=== PATIENT | male | born 1985 | race Caucasian/White ===

== ENCOUNTER 2022-02-27 17:00 | Inpatient (IN) | payer OTHER ==
[2022-02-27 18:50] VITALS: BMI 23.8
[2022-02-27] MEDS ORDERED: BISMUTH SUBSALICYLATE 524 MG/30 ML PO PRN (22:09)
[2022-02-27] MEDS ORDERED: MAGNESIUM CITRATE 300 ML BOTTLE PO PRN (22:09)
[2022-02-27] MEDS ORDERED: IBUPROFEN 400 MG TABLET (FP) PO PRN (22:09)
[2022-02-27] MEDS ORDERED: BENZOCAINE/MENTHOL (CHLORASEPTIC ) LOZENGE MM PRN (22:09)
[2022-02-27] MEDS ORDERED: DICYCLOMINE HCL 10 MG CAPSULE PO PRN (22:09)
[2022-02-27] MEDS ORDERED: ACETAMINOPHEN 325 MG TABLET (FP) PO PRN ×2 (22:09)
[2022-02-27] MEDS ORDERED: MAGNESIUM HYDROX 2400MG/30ML ORAL SUSPENSION 30 ML CUP PO PRN (22:09)
[2022-02-27] MEDS ORDERED: ONDANSETRON *ODT* 4 MG TABLET SL PRN (22:09)
[2022-02-27] MEDS ORDERED: NICOTINE POLACRILEX 2 MG GUM BUC PRN (22:09)
[2022-02-27] MEDS ORDERED: MAG HYDROX/AL HYDROX/SIMETH 30 ML UNIT-DOSE CUP PO PRN (22:09)
[2022-02-27] MEDS ORDERED: LOPERAMIDE HCL 2 MG CAPSULE PO PRN (22:09)
[2022-02-27] MEDS ORDERED: METHOCARBAMOL 500 MG TABLET PO PRN (22:09)
[2022-02-28] MEDS ORDERED: methaDONE HCL 10 MG TABLET PO ONE (09:16)
[2022-02-28] MEDS ORDERED: diazePAM 5 MG TABLET PO PRN (09:17)
[2022-02-28] MEDS: PRENATAL VITAMINS W/ FOLIC ACID TABLET (FP) PO SCH (10:32)
[2022-02-28] MEDS ORDERED: methaDONE HCL 10 MG TABLET ONE (10:32)
[2022-02-28] MEDS: diazePAM 5 MG TABLET PO SCH ×4 (10:33→22:02)
[2022-02-28] MEDS ORDERED: methaDONE HCL 40 MG DISPERSABLE TABLET ONE (10:33)
[2022-02-28] MEDS: NICOTINE 21 MG/24 HOURS TOPICAL PATCH TD SCH ×2 (10:34→12:28)
[2022-02-28 11:53] LABS: HEMATOCRIT 36.9 % (35.4-49); HEMOGLOBIN 12.6 GM/dL (11.7-16.9); MCH 28.7 pg (25.7-33.7); MCHC 34.1 g/dl (32.0-35.9); MEAN CELL VOLUME 84.1 fl (80-96); MEAN PLT VOLUME 8.4 fl (7.5-11.1); PLATELET COUNT 200 10^3/uL (134-434); RBC 4.39 M/mm3 (4.00-5.60); RDW 14.3 % (11.9-15.9); WHITE BLOOD COUNT 4.1 K/mm3 (4.0-10.0)
[2022-02-28 11:55] LABS: ALBUMIN 3.5 g/dl (3.4-5.0)
[2022-02-28 11:56] LABS: CALCIUM 8.8 mg/dL (8.5-10.1)
[2022-02-28 11:57] LABS: BLOOD UREA NITROGEN 12.3 mg/dL (7-18)
[2022-02-28 11:59] LABS: CREATININE 0.9 mg/dL (0.55-1.3)
[2022-02-28 12:00] LABS: BILIRUBIN,TOTAL 0.2 mg/dL (0.2-1); TOT PROT 6.1 g/dl (6.4-8.2)
[2022-02-28] MEDS: hydrOXYzine PAMOATE 25 MG CAPSULE (FP) PO PRN ×2 (12:30→20:41)
[2022-02-28] MEDS: NICOTINE POLACRILEX 4 MG GUM BUC PRN ×2 (18:02→20:41)
[2022-02-28] MEDS ORDERED: SUVOREXANT 10 MG TABLET PO PRN (22:00)
[2022-02-28] MEDS ORDERED: MELATONIN 5 MG TABLETS PO SCH (22:00)
[2022-02-28] MEDS: THIAMINE HCL 100 MG TABLET (FP) PO SCH (22:02)
[2022-03-01] MEDS: hydrOXYzine PAMOATE 25 MG CAPSULE (FP) PO PRN ×3 (05:59→22:31)
[2022-03-01] MEDS: NICOTINE POLACRILEX 4 MG GUM BUC PRN ×4 (05:59→22:32)
[2022-03-01] MEDS: diazePAM 5 MG TABLET PO SCH ×3 (05:59→22:30)
[2022-03-01] MEDS ORDERED: methaDONE HCL 10 MG TABLET PO ONE (08:52)
[2022-03-01] MEDS ORDERED: methaDONE HCL 10 MG TABLET PO SCH (09:30)
[2022-03-01] MEDS ORDERED: methaDONE HCL 40 MG DISPERSABLE TABLET ONE (10:04)
[2022-03-01] MEDS ORDERED: methaDONE HCL 10 MG TABLET ONE (10:04)
[2022-03-01] MEDS: PRENATAL VITAMINS W/ FOLIC ACID TABLET (FP) PO SCH (10:40)
[2022-03-01] MEDS: NICOTINE 21 MG/24 HOURS TOPICAL PATCH TD SCH (10:40)
[2022-03-01 14:08] LABS: SARS-CoV-2 NAA Not Detected (Not Detected)
[2022-03-01 14:08] LABS: SARS-CoV-2 NAA Not Detected (Not Detected)
[2022-03-01] MEDS: THIAMINE HCL 100 MG TABLET (FP) PO SCH (22:30)
[2022-03-01] MEDS: SUVOREXANT 15 MG TABLET PO PRN (22:31)
[2022-03-02] MEDS ORDERED: methaDONE HCL 10 MG TABLET ONE (04:11)
[2022-03-02] MEDS ORDERED: methaDONE HCL 40 MG DISPERSABLE TABLET ONE (04:12)
[2022-03-02] MEDS: hydrOXYzine PAMOATE 25 MG CAPSULE (FP) PO PRN ×4 (06:03→23:03)
[2022-03-02] MEDS: diazePAM 5 MG TABLET PO SCH ×2 (06:03→17:52)
[2022-03-02] MEDS: NICOTINE POLACRILEX 4 MG GUM BUC PRN ×6 (06:06→23:04)
[2022-03-02] MEDS: NICOTINE 21 MG/24 HOURS TOPICAL PATCH TD SCH (10:36)
[2022-03-02] MEDS: PRENATAL VITAMINS W/ FOLIC ACID TABLET (FP) PO SCH (10:36)
[2022-03-02] MEDS: THIAMINE HCL 100 MG TABLET (FP) PO SCH (23:03)
[2022-03-02] MEDS: SUVOREXANT 15 MG TABLET PO PRN (23:03)
[2022-03-03] MEDS ORDERED: methaDONE HCL 10 MG TABLET ONE (04:23)
[2022-03-03] MEDS ORDERED: methaDONE HCL 40 MG DISPERSABLE TABLET ONE (04:23)
[2022-03-03] MEDS ORDERED: diazePAM 5 MG TABLET PO ONE (06:00)
[2022-03-03] MEDS: hydrOXYzine PAMOATE 25 MG CAPSULE (FP) PO PRN (07:02)
[2022-03-03] MEDS: NICOTINE POLACRILEX 4 MG GUM BUC PRN ×2 (07:03→12:01)
[2022-03-03] MEDS: NICOTINE 21 MG/24 HOURS TOPICAL PATCH TD SCH (11:18)
[2022-03-03] MEDS: PRENATAL VITAMINS W/ FOLIC ACID TABLET (FP) PO SCH (11:18)
[2022-03-03 12:57] VITALS: BP 109/72; PULSE 78; TEMP 96.8
== END 2022-03-03 15:00 | disposition other institution (70) | DRG 773 ==
LOC: YASAS 17:00 → Y6N 23:36
PROVIDERS: ADMIT Allergy & Immunology; ATTEND Allergy & Immunology
PROC: HZ2ZZZZ Detoxification Services for Substance Abuse Treatment (ICD-10-PCS; principal; 2022-02-27)
DX: F10.230 Alcohol dependence with withdrawal, uncomplicated (principal); F13.230 Sedative, hypnotic or anxiolytic dependence with withdrawal, uncomplicated; F11.20 Opioid dependence, uncomplicated; F14.20 Cocaine dependence, uncomplicated; F17.210 Nicotine dependence, cigarettes, uncomplicated; F19.280 Other psychoactive substance dependence with psychoactive substance-induced anxiety disorder; F19.282 Other psychoactive substance dependence with psychoactive substance-induced sleep disorder; F19.24 Other psychoactive substance dependence with psychoactive substance-induced mood disorder; M51.16 Intervertebral disc disorders with radiculopathy, lumbar region; R56.9 Unspecified convulsions; Z56.0 Unemployment, unspecified; Z59.00 Homelessness unspecified
CPT/HCPCS: 36415; 71046-TC-FY; 80053; 85027; 86780; C9803-CS; U0003; U0005

== ENCOUNTER 2022-03-03 15:16 | Inpatient (IN) | payer OTHER ==
[2022-03-03] MEDS ORDERED: ACETAMINOPHEN 325 MG TABLET (FP) PO PRN (15:52)
[2022-03-03] MEDS ORDERED: MAGNESIUM HYDROX 2400MG/30ML ORAL SUSPENSION 30 ML CUP PO PRN (15:52)
[2022-03-03] MEDS ORDERED: P-EPHED 60MG/TRIPROLIDI 2.5MG TABLET PO PRN (15:52)
[2022-03-03] MEDS ORDERED: BENZOCAINE/MENTHOL (CHLORASEPTIC ) LOZENGE MM PRN (15:52)
[2022-03-03] MEDS ORDERED: LOPERAMIDE HCL 2 MG CAPSULE PO PRN (15:52)
[2022-03-03] MEDS ORDERED: guaiFENesin 200 MG/10 ML 10 ML UNIT-DOSE CUPS PO PRN (15:52)
[2022-03-03] MEDS ORDERED: MAGNESIUM CITRATE 300 ML BOTTLE PO PRN (15:52)
[2022-03-03] MEDS: NICOTINE POLACRILEX 4 MG GUM BUC PRN (17:40)
[2022-03-03] MEDS: THIAMINE HCL 100 MG TABLET (FP) PO SCH (21:24)
[2022-03-03] MEDS: hydrOXYzine PAMOATE 25 MG CAPSULE (FP) PO PRN (21:25)
[2022-03-03] MEDS: MELATONIN 5 MG TABLETS PO SCH (21:26)
[2022-03-04] MEDS: hydrOXYzine PAMOATE 25 MG CAPSULE (FP) PO PRN ×4 (01:03→21:35)
[2022-03-04] MEDS: MAG HYDROX/AL HYDROX/SIMETH 30 ML UNIT-DOSE CUP PO PRN (01:03)
[2022-03-04] MEDS ORDERED: methaDONE HCL 40 MG DISPERSABLE TABLET ONE (05:47)
[2022-03-04] MEDS ORDERED: methaDONE HCL 10 MG TABLET ONE (05:47)
[2022-03-04] MEDS ORDERED: methaDONE HCL 10 MG TABLET PO SCH (06:00)
[2022-03-04] MEDS: NICOTINE POLACRILEX 4 MG GUM BUC PRN ×4 (06:23→21:36)
[2022-03-04] MEDS: PRENATAL VITAMINS W/ FOLIC ACID TABLET (FP) PO SCH (09:56)
[2022-03-04] MEDS: NICOTINE 21 MG/24 HOURS TOPICAL PATCH TD SCH (09:56)
[2022-03-04] MEDS: METHOCARBAMOL 500 MG TABLET PO PRN ×2 (13:22→21:34)
[2022-03-04] MEDS: MIRTAZAPINE 15 MG TABLET (FP) PO SCH (21:34)
[2022-03-04] MEDS: MELATONIN 5 MG TABLETS PO SCH (21:34)
[2022-03-04] MEDS: THIAMINE HCL 100 MG TABLET (FP) PO SCH (21:34)
[2022-03-04] MEDS ORDERED: SUVOREXANT 10 MG TABLET PO PRN (22:00)
[2022-03-05] MEDS ORDERED: methaDONE HCL 10 MG TABLET ONE (03:28)
[2022-03-05] MEDS ORDERED: methaDONE HCL 40 MG DISPERSABLE TABLET ONE (03:28)
[2022-03-05] MEDS: NICOTINE POLACRILEX 4 MG GUM BUC PRN ×5 (06:24→21:52)
[2022-03-05] MEDS: METHOCARBAMOL 500 MG TABLET PO PRN ×3 (06:27→21:50)
[2022-03-05] MEDS: hydrOXYzine PAMOATE 25 MG CAPSULE (FP) PO PRN ×3 (06:27→21:51)
[2022-03-05] MEDS: PRENATAL VITAMINS W/ FOLIC ACID TABLET (FP) PO SCH (09:40)
[2022-03-05] MEDS: NICOTINE 21 MG/24 HOURS TOPICAL PATCH TD SCH (09:40)
[2022-03-05] MEDS: MELATONIN 5 MG TABLETS PO SCH (21:51)
[2022-03-05] MEDS: THIAMINE HCL 100 MG TABLET (FP) PO SCH (21:51)
[2022-03-05] MEDS: MIRTAZAPINE 15 MG TABLET (FP) PO SCH (21:51)
[2022-03-06] MEDS ORDERED: methaDONE HCL 40 MG DISPERSABLE TABLET ONE (03:26)
[2022-03-06] MEDS ORDERED: methaDONE HCL 10 MG TABLET ONE (03:26)
[2022-03-06] MEDS: NICOTINE POLACRILEX 4 MG GUM BUC PRN ×3 (06:24→11:55)
[2022-03-06] MEDS: hydrOXYzine PAMOATE 25 MG CAPSULE (FP) PO PRN ×2 (06:26→21:21)
[2022-03-06] MEDS: METHOCARBAMOL 500 MG TABLET PO PRN ×3 (06:26→21:21)
[2022-03-06] MEDS: NICOTINE 21 MG/24 HOURS TOPICAL PATCH TD SCH (09:40)
[2022-03-06] MEDS: PRENATAL VITAMINS W/ FOLIC ACID TABLET (FP) PO SCH (09:40)
[2022-03-06] MEDS: IBUPROFEN 400 MG TABLET (FP) PO PRN (12:47)
[2022-03-06] MEDS: MELATONIN 5 MG TABLETS PO SCH (21:21)
[2022-03-06] MEDS: THIAMINE HCL 100 MG TABLET (FP) PO SCH (21:21)
[2022-03-06] MEDS: MIRTAZAPINE 15 MG TABLET (FP) PO SCH (21:22)
[2022-03-07] MEDS ORDERED: methaDONE HCL 10 MG TABLET ONE (02:48)
[2022-03-07] MEDS ORDERED: methaDONE HCL 40 MG DISPERSABLE TABLET ONE (02:48)
[2022-03-07] MEDS: hydrOXYzine PAMOATE 25 MG CAPSULE (FP) PO PRN ×2 (02:55→21:27)
[2022-03-07] MEDS: METHOCARBAMOL 500 MG TABLET PO PRN ×2 (02:56→21:28)
[2022-03-07] MEDS: MAG HYDROX/AL HYDROX/SIMETH 30 ML UNIT-DOSE CUP PO PRN (04:28)
[2022-03-07] MEDS: NICOTINE POLACRILEX 4 MG GUM BUC PRN ×2 (06:31→09:52)
[2022-03-07] MEDS: PRENATAL VITAMINS W/ FOLIC ACID TABLET (FP) PO SCH (09:51)
[2022-03-07] MEDS: NICOTINE 14 MG/24 HOURS TOPICAL PATCH TD SCH (09:51)
[2022-03-07 14:08] LABS: SARS-CoV-2 NAA Not Detected (Not Detected)
[2022-03-07] MEDS: THIAMINE HCL 100 MG TABLET (FP) PO SCH (21:27)
[2022-03-07] MEDS: MELATONIN 5 MG TABLETS PO SCH (21:28)
[2022-03-07] MEDS: MIRTAZAPINE 15 MG TABLET (FP) PO SCH (21:28)
[2022-03-08] MEDS ORDERED: methaDONE HCL 10 MG TABLET ONE (02:06)
[2022-03-08] MEDS ORDERED: methaDONE HCL 40 MG DISPERSABLE TABLET ONE (02:06)
[2022-03-08] MEDS: PRENATAL VITAMINS W/ FOLIC ACID TABLET (FP) PO SCH (09:58)
[2022-03-08] MEDS: NICOTINE 14 MG/24 HOURS TOPICAL PATCH TD SCH (09:59)
[2022-03-08] MEDS: MELATONIN 5 MG TABLETS PO SCH (21:25)
[2022-03-08] MEDS: MIRTAZAPINE 15 MG TABLET (FP) PO SCH (21:25)
[2022-03-08] MEDS: THIAMINE HCL 100 MG TABLET (FP) PO SCH (21:25)
[2022-03-09] MEDS ORDERED: methaDONE HCL 10 MG TABLET ONE (02:20)
[2022-03-09] MEDS ORDERED: methaDONE HCL 40 MG DISPERSABLE TABLET ONE (02:20)
[2022-03-09] MEDS: NICOTINE 14 MG/24 HOURS TOPICAL PATCH TD SCH (10:05)
[2022-03-09] MEDS: PRENATAL VITAMINS W/ FOLIC ACID TABLET (FP) PO SCH (10:06)
[2022-03-09] MEDS: MIRTAZAPINE 15 MG TABLET (FP) PO SCH (21:19)
[2022-03-09] MEDS: MELATONIN 5 MG TABLETS PO SCH (21:19)
[2022-03-09] MEDS: THIAMINE HCL 100 MG TABLET (FP) PO SCH (21:19)
[2022-03-10] MEDS ORDERED: methaDONE HCL 40 MG DISPERSABLE TABLET ONE (03:22)
[2022-03-10] MEDS ORDERED: methaDONE HCL 10 MG TABLET ONE (03:22)
[2022-03-10] MEDS: NICOTINE 14 MG/24 HOURS TOPICAL PATCH TD SCH (10:05)
[2022-03-10] MEDS: METHOCARBAMOL 500 MG TABLET PO PRN (10:05)
[2022-03-10] MEDS: PRENATAL VITAMINS W/ FOLIC ACID TABLET (FP) PO SCH (10:05)
[2022-03-10] MEDS: THIAMINE HCL 100 MG TABLET (FP) PO SCH (21:47)
[2022-03-10] MEDS: MELATONIN 5 MG TABLETS PO SCH (21:47)
[2022-03-10] MEDS: MIRTAZAPINE 15 MG TABLET (FP) PO SCH (21:47)
[2022-03-10] MEDS: hydrOXYzine PAMOATE 25 MG CAPSULE (FP) PO PRN (23:46)
[2022-03-11] MEDS ORDERED: methaDONE HCL 10 MG TABLET ONE (06:13)
[2022-03-11] MEDS ORDERED: methaDONE HCL 40 MG DISPERSABLE TABLET ONE (06:13)
[2022-03-11] MEDS: PRENATAL VITAMINS W/ FOLIC ACID TABLET (FP) PO SCH (11:13)
[2022-03-11] MEDS: NICOTINE 14 MG/24 HOURS TOPICAL PATCH TD SCH (11:13)
[2022-03-11] MEDS: MIRTAZAPINE 15 MG TABLET (FP) PO SCH (21:33)
[2022-03-11] MEDS: MELATONIN 5 MG TABLETS PO SCH (21:33)
[2022-03-11] MEDS: THIAMINE HCL 100 MG TABLET (FP) PO SCH (21:34)
[2022-03-12] MEDS ORDERED: methaDONE HCL 10 MG TABLET ONE (03:09)
[2022-03-12] MEDS ORDERED: methaDONE HCL 40 MG DISPERSABLE TABLET ONE (03:09)
[2022-03-12] MEDS: IBUPROFEN 400 MG TABLET (FP) PO PRN (08:26)
[2022-03-12] MEDS: PRENATAL VITAMINS W/ FOLIC ACID TABLET (FP) PO SCH (09:20)
[2022-03-12] MEDS: METHOCARBAMOL 500 MG TABLET PO PRN ×2 (09:20→22:47)
[2022-03-12] MEDS: NICOTINE 14 MG/24 HOURS TOPICAL PATCH TD SCH (09:21)
[2022-03-12] MEDS: MELATONIN 5 MG TABLETS PO SCH (21:27)
[2022-03-12] MEDS: MIRTAZAPINE 15 MG TABLET (FP) PO SCH (21:27)
[2022-03-12] MEDS: THIAMINE HCL 100 MG TABLET (FP) PO SCH (21:27)
[2022-03-12] MEDS: hydrOXYzine PAMOATE 25 MG CAPSULE (FP) PO PRN (22:47)
[2022-03-13] MEDS ORDERED: methaDONE HCL 10 MG TABLET ONE (03:21)
[2022-03-13] MEDS ORDERED: methaDONE HCL 40 MG DISPERSABLE TABLET ONE (03:21)
[2022-03-13] MEDS: PRENATAL VITAMINS W/ FOLIC ACID TABLET (FP) PO SCH (09:30)
[2022-03-13] MEDS: NICOTINE 14 MG/24 HOURS TOPICAL PATCH TD SCH (09:30)
[2022-03-13] MEDS: METHOCARBAMOL 500 MG TABLET PO PRN ×2 (09:31→21:32)
[2022-03-13] MEDS: NICOTINE POLACRILEX 4 MG GUM BUC PRN (09:31)
[2022-03-13] MEDS: MELATONIN 5 MG TABLETS PO SCH (21:33)
[2022-03-13] MEDS: MIRTAZAPINE 15 MG TABLET (FP) PO SCH (21:33)
[2022-03-13] MEDS: THIAMINE HCL 100 MG TABLET (FP) PO SCH (21:33)
[2022-03-14] MEDS: hydrOXYzine PAMOATE 25 MG CAPSULE (FP) PO PRN ×2 (00:01→21:32)
[2022-03-14] MEDS ORDERED: methaDONE HCL 40 MG DISPERSABLE TABLET ONE (09:14)
[2022-03-14] MEDS ORDERED: methaDONE HCL 10 MG TABLET ONE (09:14)
[2022-03-14] MEDS: NICOTINE 7 MG/24 HOURS TOPICAL PATCH TD SCH (09:55)
[2022-03-14] MEDS: PRENATAL VITAMINS W/ FOLIC ACID TABLET (FP) PO SCH (09:55)
[2022-03-14] MEDS: NICOTINE POLACRILEX 4 MG GUM BUC PRN (09:56)
[2022-03-14] MEDS: IBUPROFEN 400 MG TABLET (FP) PO PRN ×2 (12:39→20:02)
[2022-03-14] MEDS: METHOCARBAMOL 500 MG TABLET PO PRN ×2 (12:39→20:02)
[2022-03-14] MEDS: SUVOREXANT 10 MG TABLET PO PRN (21:31)
[2022-03-14] MEDS: THIAMINE HCL 100 MG TABLET (FP) PO SCH (21:32)
[2022-03-14] MEDS: MELATONIN 5 MG TABLETS PO SCH (21:32)
[2022-03-15] MEDS ORDERED: methaDONE HCL 40 MG DISPERSABLE TABLET ONE (07:17)
[2022-03-15] MEDS ORDERED: methaDONE HCL 10 MG TABLET ONE (07:17)
[2022-03-15] MEDS: PRENATAL VITAMINS W/ FOLIC ACID TABLET (FP) PO SCH (09:48)
[2022-03-15] MEDS: NICOTINE 7 MG/24 HOURS TOPICAL PATCH TD SCH (09:50)
[2022-03-15] MEDS: METHOCARBAMOL 500 MG TABLET PO PRN ×2 (09:51→22:48)
[2022-03-15] MEDS: NICOTINE POLACRILEX 2 MG GUM BUC PRN ×2 (09:52→12:24)
[2022-03-15] MEDS: IBUPROFEN 400 MG TABLET (FP) PO PRN ×2 (12:21→22:48)
[2022-03-15] MEDS: MELATONIN 5 MG TABLETS PO SCH (21:40)
[2022-03-15] MEDS: THIAMINE HCL 100 MG TABLET (FP) PO SCH (21:40)
[2022-03-15] MEDS: hydrOXYzine PAMOATE 25 MG CAPSULE (FP) PO PRN (21:41)
[2022-03-15] MEDS: SUVOREXANT 10 MG TABLET PO PRN (21:41)
[2022-03-16] MEDS ORDERED: methaDONE HCL 40 MG DISPERSABLE TABLET ONE (08:34)
[2022-03-16] MEDS ORDERED: methaDONE HCL 10 MG TABLET ONE (08:34)
[2022-03-16] MEDS: PRENATAL VITAMINS W/ FOLIC ACID TABLET (FP) PO SCH (09:44)
[2022-03-16] MEDS: ASPIRIN 81 MG CHEWABLE TABLETS PO SCH (09:44)
[2022-03-16] MEDS: NICOTINE 7 MG/24 HOURS TOPICAL PATCH TD SCH (09:46)
[2022-03-16] MEDS: NICOTINE POLACRILEX 2 MG GUM BUC PRN ×2 (09:47→12:34)
[2022-03-16] MEDS: THIAMINE HCL 100 MG TABLET (FP) PO SCH (21:26)
[2022-03-16] MEDS: hydrOXYzine PAMOATE 25 MG CAPSULE (FP) PO PRN (21:26)
[2022-03-16] MEDS: METHOCARBAMOL 500 MG TABLET PO PRN (21:26)
[2022-03-16] MEDS: SUVOREXANT 10 MG TABLET PO PRN (21:27)
[2022-03-16] MEDS: MELATONIN 5 MG TABLETS PO SCH (21:28)
[2022-03-17] MEDS ORDERED: methaDONE HCL 40 MG DISPERSABLE TABLET ONE (08:33)
[2022-03-17] MEDS ORDERED: methaDONE HCL 10 MG TABLET ONE (08:33)
[2022-03-17] MEDS: PRENATAL VITAMINS W/ FOLIC ACID TABLET (FP) PO SCH (09:46)
[2022-03-17] MEDS: ASPIRIN 81 MG CHEWABLE TABLETS PO SCH (09:46)
[2022-03-17] MEDS: NICOTINE 7 MG/24 HOURS TOPICAL PATCH TD SCH (09:47)
[2022-03-17] MEDS: SUVOREXANT 10 MG TABLET PO PRN (21:16)
[2022-03-17] MEDS: METHOCARBAMOL 500 MG TABLET PO PRN (21:16)
[2022-03-17] MEDS: THIAMINE HCL 100 MG TABLET (FP) PO SCH (21:16)
[2022-03-17] MEDS: hydrOXYzine PAMOATE 25 MG CAPSULE (FP) PO PRN (21:16)
[2022-03-17] MEDS: MELATONIN 5 MG TABLETS PO SCH (21:26)
[2022-03-18] MEDS ORDERED: methaDONE HCL 40 MG DISPERSABLE TABLET ONE (09:09)
[2022-03-18] MEDS ORDERED: methaDONE HCL 10 MG TABLET ONE (09:09)
[2022-03-18] MEDS: PRENATAL VITAMINS W/ FOLIC ACID TABLET (FP) PO SCH (09:54)
[2022-03-18] MEDS: METHOCARBAMOL 500 MG TABLET PO PRN (09:54)
[2022-03-18] MEDS: ASPIRIN 81 MG CHEWABLE TABLETS PO SCH (09:54)
[2022-03-18] MEDS: NICOTINE POLACRILEX 2 MG GUM BUC PRN (09:55)
[2022-03-18] MEDS: NICOTINE 7 MG/24 HOURS TOPICAL PATCH TD SCH (10:08)
[2022-03-18] MEDS: THIAMINE HCL 100 MG TABLET (FP) PO SCH (21:51)
[2022-03-18] MEDS: SUVOREXANT 10 MG TABLET PO PRN (21:53)
[2022-03-18] MEDS: hydrOXYzine PAMOATE 25 MG CAPSULE (FP) PO PRN (21:54)
[2022-03-18] MEDS: MELATONIN 5 MG TABLETS PO SCH (21:56)
[2022-03-19] MEDS ORDERED: methaDONE HCL 40 MG DISPERSABLE TABLET ONE (09:20)
[2022-03-19] MEDS ORDERED: methaDONE HCL 10 MG TABLET ONE (09:20)
[2022-03-19] MEDS: PRENATAL VITAMINS W/ FOLIC ACID TABLET (FP) PO SCH (09:47)
[2022-03-19] MEDS: METHOCARBAMOL 500 MG TABLET PO PRN ×2 (09:48→21:31)
[2022-03-19] MEDS: ASPIRIN 81 MG CHEWABLE TABLETS PO SCH (09:48)
[2022-03-19] MEDS: NICOTINE 7 MG/24 HOURS TOPICAL PATCH TD SCH (09:49)
[2022-03-19] MEDS: NICOTINE POLACRILEX 2 MG GUM BUC PRN (09:51)
[2022-03-19] MEDS: MELATONIN 5 MG TABLETS PO SCH (21:30)
[2022-03-19] MEDS: THIAMINE HCL 100 MG TABLET (FP) PO SCH (21:30)
[2022-03-19] MEDS: hydrOXYzine PAMOATE 25 MG CAPSULE (FP) PO PRN (21:31)
[2022-03-19] MEDS: SUVOREXANT 10 MG TABLET PO PRN (21:32)
[2022-03-20] MEDS ORDERED: methaDONE HCL 10 MG TABLET ONE (08:23)
[2022-03-20] MEDS ORDERED: methaDONE HCL 40 MG DISPERSABLE TABLET ONE (08:23)
[2022-03-20] MEDS: NICOTINE 7 MG/24 HOURS TOPICAL PATCH TD SCH (09:53)
[2022-03-20] MEDS: ASPIRIN 81 MG CHEWABLE TABLETS PO SCH (09:53)
[2022-03-20] MEDS: PRENATAL VITAMINS W/ FOLIC ACID TABLET (FP) PO SCH (09:53)
[2022-03-20] MEDS: NICOTINE POLACRILEX 2 MG GUM BUC PRN (09:54)
[2022-03-20] MEDS: METHOCARBAMOL 500 MG TABLET PO PRN ×2 (09:55→21:34)
[2022-03-20] MEDS: MELATONIN 5 MG TABLETS PO SCH (21:34)
[2022-03-20] MEDS: THIAMINE HCL 100 MG TABLET (FP) PO SCH (21:34)
[2022-03-20] MEDS: hydrOXYzine PAMOATE 25 MG CAPSULE (FP) PO PRN (21:34)
[2022-03-21] MEDS ORDERED: methaDONE HCL 10 MG TABLET ONE (08:43)
[2022-03-21] MEDS ORDERED: methaDONE HCL 40 MG DISPERSABLE TABLET ONE (08:44)
[2022-03-21] MEDS: ASPIRIN 81 MG CHEWABLE TABLETS PO SCH (09:57)
[2022-03-21] MEDS: PRENATAL VITAMINS W/ FOLIC ACID TABLET (FP) PO SCH (09:57)
[2022-03-21] MEDS: NICOTINE 7 MG/24 HOURS TOPICAL PATCH TD SCH (09:59)
[2022-03-21] MEDS: METHOCARBAMOL 500 MG TABLET PO PRN ×2 (12:07→21:27)
[2022-03-21] MEDS: NICOTINE POLACRILEX 2 MG GUM BUC PRN (12:08)
[2022-03-21] MEDS: hydrOXYzine PAMOATE 25 MG CAPSULE (FP) PO PRN (21:27)
[2022-03-21] MEDS: MELATONIN 5 MG TABLETS PO SCH (21:27)
[2022-03-21] MEDS: THIAMINE HCL 100 MG TABLET (FP) PO SCH (21:27)
[2022-03-22] MEDS ORDERED: methaDONE HCL 10 MG TABLET ONE (08:29)
[2022-03-22] MEDS ORDERED: methaDONE HCL 40 MG DISPERSABLE TABLET ONE (08:30)
[2022-03-22] MEDS: PRENATAL VITAMINS W/ FOLIC ACID TABLET (FP) PO SCH (09:51)
[2022-03-22] MEDS: NICOTINE 7 MG/24 HOURS TOPICAL PATCH TD SCH (09:51)
[2022-03-22] MEDS: METHOCARBAMOL 500 MG TABLET PO PRN ×2 (09:52→21:15)
[2022-03-22] MEDS: ASPIRIN 81 MG CHEWABLE TABLETS PO SCH (09:52)
[2022-03-22] MEDS: hydrOXYzine PAMOATE 25 MG CAPSULE (FP) PO PRN ×2 (09:52→21:15)
[2022-03-22] MEDS: NICOTINE POLACRILEX 2 MG GUM BUC PRN (11:42)
[2022-03-22] MEDS: MELATONIN 5 MG TABLETS PO SCH (21:14)
[2022-03-22] MEDS: THIAMINE HCL 100 MG TABLET (FP) PO SCH (21:15)
[2022-03-23] MEDS ORDERED: methaDONE HCL 10 MG TABLET ONE (08:43)
[2022-03-23] MEDS ORDERED: methaDONE HCL 40 MG DISPERSABLE TABLET ONE (08:43)
[2022-03-23] MEDS: NICOTINE POLACRILEX 2 MG GUM BUC PRN (09:34)
[2022-03-23] MEDS: NICOTINE 7 MG/24 HOURS TOPICAL PATCH TD SCH (09:34)
[2022-03-23] MEDS: hydrOXYzine PAMOATE 25 MG CAPSULE (FP) PO PRN ×2 (09:34→21:22)
[2022-03-23] MEDS: PRENATAL VITAMINS W/ FOLIC ACID TABLET (FP) PO SCH (09:34)
[2022-03-23] MEDS: ASPIRIN 81 MG CHEWABLE TABLETS PO SCH (09:34)
[2022-03-23] MEDS: METHOCARBAMOL 500 MG TABLET PO PRN ×2 (09:34→21:22)
[2022-03-23] MEDS: THIAMINE HCL 100 MG TABLET (FP) PO SCH (21:21)
[2022-03-23] MEDS: MELATONIN 5 MG TABLETS PO SCH (21:21)
[2022-03-23] MEDS: SUVOREXANT 10 MG TABLET PO PRN (21:23)
[2022-03-24] MEDS ORDERED: methaDONE HCL 10 MG TABLET ONE (09:12)
[2022-03-24] MEDS ORDERED: methaDONE HCL 40 MG DISPERSABLE TABLET ONE (09:13)
[2022-03-24] MEDS: ASPIRIN 81 MG CHEWABLE TABLETS PO SCH (10:10)
[2022-03-24] MEDS: NICOTINE 7 MG/24 HOURS TOPICAL PATCH TD SCH (10:10)
[2022-03-24] MEDS: PRENATAL VITAMINS W/ FOLIC ACID TABLET (FP) PO SCH (10:10)
[2022-03-24] MEDS: hydrOXYzine PAMOATE 25 MG CAPSULE (FP) PO PRN ×2 (10:13→21:39)
[2022-03-24] MEDS: METHOCARBAMOL 500 MG TABLET PO PRN ×2 (10:13→21:39)
[2022-03-24] MEDS: MELATONIN 5 MG TABLETS PO SCH (21:37)
[2022-03-24] MEDS: THIAMINE HCL 100 MG TABLET (FP) PO SCH (21:37)
[2022-03-24] MEDS: SUVOREXANT 10 MG TABLET PO PRN (21:39)
[2022-03-25] MEDS: METHOCARBAMOL 500 MG TABLET PO PRN ×2 (06:13→21:09)
[2022-03-25] MEDS: hydrOXYzine PAMOATE 25 MG CAPSULE (FP) PO PRN ×3 (06:13→21:09)
[2022-03-25] MEDS ORDERED: methaDONE HCL 10 MG TABLET ONE (08:25)
[2022-03-25] MEDS ORDERED: methaDONE HCL 40 MG DISPERSABLE TABLET ONE (08:25)
[2022-03-25] MEDS: PRENATAL VITAMINS W/ FOLIC ACID TABLET (FP) PO SCH (09:11)
[2022-03-25] MEDS: ASPIRIN 81 MG CHEWABLE TABLETS PO SCH (09:11)
[2022-03-25] MEDS: NICOTINE 7 MG/24 HOURS TOPICAL PATCH TD SCH (09:12)
[2022-03-25] MEDS: MELATONIN 5 MG TABLETS PO SCH (21:08)
[2022-03-25] MEDS: THIAMINE HCL 100 MG TABLET (FP) PO SCH (21:08)
[2022-03-25] MEDS ORDERED: SUVOREXANT 10 MG TABLET PO PRN (22:00)
[2022-03-26] MEDS: METHOCARBAMOL 500 MG TABLET PO PRN ×2 (06:14→21:08)
[2022-03-26] MEDS: hydrOXYzine PAMOATE 25 MG CAPSULE (FP) PO PRN (06:14)
[2022-03-26] MEDS ORDERED: methaDONE HCL 40 MG DISPERSABLE TABLET ONE (08:49)
[2022-03-26] MEDS ORDERED: methaDONE HCL 10 MG TABLET ONE (08:49)
[2022-03-26] MEDS: PRENATAL VITAMINS W/ FOLIC ACID TABLET (FP) PO SCH (09:18)
[2022-03-26] MEDS: ASPIRIN 81 MG CHEWABLE TABLETS PO SCH (09:18)
[2022-03-26] MEDS: NICOTINE 7 MG/24 HOURS TOPICAL PATCH TD SCH (09:19)
[2022-03-26] MEDS: MELATONIN 5 MG TABLETS PO SCH (21:07)
[2022-03-26] MEDS: THIAMINE HCL 100 MG TABLET (FP) PO SCH (21:07)
[2022-03-27] MEDS ORDERED: methaDONE HCL 40 MG DISPERSABLE TABLET ONE (09:58)
[2022-03-27] MEDS ORDERED: methaDONE HCL 10 MG TABLET ONE (09:58)
[2022-03-27] MEDS: NICOTINE 7 MG/24 HOURS TOPICAL PATCH TD SCH (10:11)
[2022-03-27] MEDS: METHOCARBAMOL 500 MG TABLET PO PRN ×2 (10:13→18:05)
[2022-03-27] MEDS: ASPIRIN 81 MG CHEWABLE TABLETS PO SCH (10:13)
[2022-03-27] MEDS: hydrOXYzine PAMOATE 25 MG CAPSULE (FP) PO PRN ×3 (10:14→21:07)
[2022-03-27] MEDS: PRENATAL VITAMINS W/ FOLIC ACID TABLET (FP) PO SCH (10:14)
[2022-03-27] MEDS: NICOTINE POLACRILEX 2 MG GUM BUC PRN ×2 (10:36→15:38)
[2022-03-27] MEDS: MELATONIN 5 MG TABLETS PO SCH (21:07)
[2022-03-27] MEDS: THIAMINE HCL 100 MG TABLET (FP) PO SCH (21:07)
[2022-03-27] MEDS: SUVOREXANT 10 MG TABLET PO PRN (21:08)
[2022-03-28] MEDS ORDERED: methaDONE HCL 10 MG TABLET ONE (06:11)
[2022-03-28] MEDS ORDERED: methaDONE HCL 40 MG DISPERSABLE TABLET ONE (06:11)
[2022-03-28] MEDS: hydrOXYzine PAMOATE 25 MG CAPSULE (FP) PO PRN ×2 (06:20→21:07)
[2022-03-28] MEDS: METHOCARBAMOL 500 MG TABLET PO PRN ×2 (06:20→21:07)
[2022-03-28] MEDS: ASPIRIN 81 MG CHEWABLE TABLETS PO SCH (09:37)
[2022-03-28] MEDS: NICOTINE 7 MG/24 HOURS TOPICAL PATCH TD SCH (09:37)
[2022-03-28] MEDS: PRENATAL VITAMINS W/ FOLIC ACID TABLET (FP) PO SCH (09:37)
[2022-03-28] MEDS: NICOTINE POLACRILEX 4 MG GUM BUC PRN ×3 (09:39→21:18)
[2022-03-28] MEDS: THIAMINE HCL 100 MG TABLET (FP) PO SCH (21:05)
[2022-03-28] MEDS: MELATONIN 5 MG TABLETS PO SCH (21:05)
[2022-03-28] MEDS: SUVOREXANT 10 MG TABLET PO PRN (21:07)
[2022-03-29] MEDS ORDERED: methaDONE HCL 10 MG TABLET ONE (03:55)
[2022-03-29] MEDS ORDERED: methaDONE HCL 40 MG DISPERSABLE TABLET ONE (03:55)
[2022-03-29] MEDS: hydrOXYzine PAMOATE 25 MG CAPSULE (FP) PO PRN ×2 (06:18→21:09)
[2022-03-29] MEDS: METHOCARBAMOL 500 MG TABLET PO PRN ×2 (06:18→21:09)
[2022-03-29] MEDS: NICOTINE POLACRILEX 4 MG GUM BUC PRN ×2 (06:20→09:37)
[2022-03-29] MEDS: NICOTINE 7 MG/24 HOURS TOPICAL PATCH TD SCH (09:37)
[2022-03-29] MEDS: ASPIRIN 81 MG CHEWABLE TABLETS PO SCH (09:37)
[2022-03-29] MEDS: PRENATAL VITAMINS W/ FOLIC ACID TABLET (FP) PO SCH (09:37)
[2022-03-29] MEDS: THIAMINE HCL 100 MG TABLET (FP) PO SCH (21:09)
[2022-03-29] MEDS: MELATONIN 5 MG TABLETS PO SCH (21:09)
[2022-03-29] MEDS: SUVOREXANT 10 MG TABLET PO PRN (21:10)
[2022-03-30] MEDS ORDERED: methaDONE HCL 10 MG TABLET ONE (03:35)
[2022-03-30] MEDS ORDERED: methaDONE HCL 40 MG DISPERSABLE TABLET ONE (03:35)
[2022-03-30] MEDS: METHOCARBAMOL 500 MG TABLET PO PRN ×3 (06:22→21:03)
[2022-03-30] MEDS: hydrOXYzine PAMOATE 25 MG CAPSULE (FP) PO PRN ×3 (06:22→21:03)
[2022-03-30] MEDS: ASPIRIN 81 MG CHEWABLE TABLETS PO SCH (09:29)
[2022-03-30] MEDS: PRENATAL VITAMINS W/ FOLIC ACID TABLET (FP) PO SCH (09:29)
[2022-03-30] MEDS: NICOTINE POLACRILEX 4 MG GUM BUC PRN ×2 (09:30→13:35)
[2022-03-30] MEDS: NICOTINE 7 MG/24 HOURS TOPICAL PATCH TD SCH (09:34)
[2022-03-30] MEDS: SUVOREXANT 10 MG TABLET PO PRN (21:03)
[2022-03-30] MEDS: THIAMINE HCL 100 MG TABLET (FP) PO SCH (21:03)
[2022-03-30] MEDS: MELATONIN 5 MG TABLETS PO SCH (21:03)
[2022-03-31] MEDS ORDERED: methaDONE HCL 10 MG TABLET ONE (03:36)
[2022-03-31] MEDS ORDERED: methaDONE HCL 40 MG DISPERSABLE TABLET ONE (03:36)
[2022-03-31] MEDS: METHOCARBAMOL 500 MG TABLET PO PRN (06:59)
[2022-03-31] MEDS: hydrOXYzine PAMOATE 25 MG CAPSULE (FP) PO PRN (06:59)
[2022-03-31] MEDS: NICOTINE POLACRILEX 4 MG GUM BUC PRN ×2 (07:02→09:04)
[2022-03-31 07:12] VITALS: BP 117/72; PULSE 104; TEMP 97.7
[2022-03-31] MEDS: ASPIRIN 81 MG CHEWABLE TABLETS PO SCH (09:03)
[2022-03-31] MEDS: PRENATAL VITAMINS W/ FOLIC ACID TABLET (FP) PO SCH (09:03)
[2022-03-31] MEDS: NICOTINE 7 MG/24 HOURS TOPICAL PATCH TD SCH (09:04)
== END 2022-03-31 09:23 | disposition home or self-care (01) | DRG 772 ==
LOC: YASAS 15:16 → Y3E 15:17
PROVIDERS: ADMIT Allergy & Immunology; ATTEND Allergy & Immunology
PROC: HZ42ZZZ Group Counseling for Substance Abuse Treatment, Cognitive-Behavioral (ICD-10-PCS; principal; 2022-03-03)
DX: F11.20 Opioid dependence, uncomplicated (principal); F10.20 Alcohol dependence, uncomplicated; F14.20 Cocaine dependence, uncomplicated; F13.20 Sedative, hypnotic or anxiolytic dependence, uncomplicated; F17.210 Nicotine dependence, cigarettes, uncomplicated; F19.280 Other psychoactive substance dependence with psychoactive substance-induced anxiety disorder; F19.282 Other psychoactive substance dependence with psychoactive substance-induced sleep disorder; F19.24 Other psychoactive substance dependence with psychoactive substance-induced mood disorder; F41.9 Anxiety disorder, unspecified; M51.16 Intervertebral disc disorders with radiculopathy, lumbar region; R63.4 Abnormal weight loss; Z68.23 Body mass index [BMI] 23.0-23.9, adult; Z56.0 Unemployment, unspecified; Z59.00 Homelessness unspecified
CPT/HCPCS: C9803-CS; U0003; U0005

== ENCOUNTER 2022-05-08 14:06 | Inpatient (IN) | payer OTHER ==
[2022-05-08 16:38] VITALS: BMI 24.3
[2022-05-08] MEDS ORDERED: METHOCARBAMOL 500 MG TABLET PO PRN (17:14)
[2022-05-08] MEDS ORDERED: DICYCLOMINE HCL 10 MG CAPSULE PO PRN (17:14)
[2022-05-08] MEDS ORDERED: MAG HYDROX/AL HYDROX/SIMETH 30 ML UNIT-DOSE CUP PO PRN (17:14)
[2022-05-08] MEDS ORDERED: diazePAM 5 MG TABLET PO ONE (17:14)
[2022-05-08] MEDS ORDERED: LOPERAMIDE HCL 2 MG CAPSULE PO PRN (17:14)
[2022-05-08] MEDS ORDERED: MAGNESIUM CITRATE 300 ML BOTTLE PO PRN (17:14)
[2022-05-08] MEDS ORDERED: MAGNESIUM HYDROX 2400MG/30ML ORAL SUSPENSION 30 ML CUP PO PRN (17:14)
[2022-05-08] MEDS ORDERED: NICOTINE 10 MG CARTRIDGE (INHALER) IH PRN (17:14)
[2022-05-08] MEDS ORDERED: ONDANSETRON *ODT* 4 MG TABLET SL PRN (17:14)
[2022-05-08] MEDS ORDERED: ACETAMINOPHEN 325 MG TABLET (FP) PO PRN (17:14)
[2022-05-08] MEDS ORDERED: BENZOCAINE/MENTHOL (CHLORASEPTIC ) LOZENGE MM PRN (17:14)
[2022-05-08] MEDS ORDERED: BISMUTH SUBSALICYLATE 524 MG/30 ML PO PRN (17:14)
[2022-05-08] MEDS: hydrOXYzine PAMOATE 25 MG CAPSULE (FP) PO SCH ×2 (18:41→22:20)
[2022-05-08] MEDS ORDERED: MELATONIN 5 MG TABLETS PO SCH (22:00)
[2022-05-08] MEDS: diazePAM 5 MG TABLET PO SCH (22:19)
[2022-05-08] MEDS: THIAMINE HCL 100 MG TABLET (FP) PO SCH (22:19)
[2022-05-09] MEDS: hydrOXYzine PAMOATE 25 MG CAPSULE (FP) PO SCH ×5 (05:30→22:44)
[2022-05-09] MEDS: diazePAM 5 MG TABLET PO SCH ×4 (05:30→22:41)
[2022-05-09] MEDS: NICOTINE POLACRILEX 2 MG GUM BUC PRN ×5 (05:31→22:44)
[2022-05-09] MEDS ORDERED: methaDONE HCL 10 MG TABLET PO SCH (09:30)
[2022-05-09] MEDS: ASPIRIN 81 MG CHEWABLE TABLETS PO SCH (10:26)
[2022-05-09] MEDS: PRENATAL VITAMINS W/ FOLIC ACID TABLET (FP) PO SCH (10:26)
[2022-05-09] MEDS ORDERED: methaDONE HCL 40 MG DISPERSABLE TABLET ONE (10:27)
[2022-05-09] MEDS ORDERED: methaDONE HCL 10 MG TABLET ONE (10:27)
[2022-05-09 10:49] LABS: HEMATOCRIT 36.2 % (35.4-49); HEMOGLOBIN 12.3 GM/dL (11.7-16.9); MCH 29.3 pg (25.7-33.7); MCHC 34.1 g/dl (32.0-35.9); MEAN CELL VOLUME 85.8 fl (80-96); MEAN PLT VOLUME 7.9 fl (7.5-11.1); PLATELET COUNT 222 10^3/uL (134-434); RBC 4.21 M/mm3 (4.00-5.60); RDW 15.4 % (11.9-15.9); WHITE BLOOD COUNT 3.8 K/mm3 (4.0-10.0)
[2022-05-09 10:59] LABS: ALBUMIN 3.6 g/dl (3.4-5.0); BLOOD UREA NITROGEN 10.8 mg/dL (7-18); CALCIUM 8.7 mg/dL (8.5-10.1)
[2022-05-09 11:02] LABS: CREATININE 0.9 mg/dL (0.55-1.3)
[2022-05-09 11:04] LABS: BILIRUBIN,TOTAL 0.4 mg/dL (0.2-1); TOT PROT 6.5 g/dl (6.4-8.2)
[2022-05-09] MEDS: diazePAM 5 MG TABLET PO PRN ×2 (14:59→20:28)
[2022-05-09] MEDS: THIAMINE HCL 100 MG TABLET (FP) PO SCH (22:41)
[2022-05-09] MEDS: SUVOREXANT 15 MG TABLET PO PRN (22:43)
[2022-05-10] MEDS ORDERED: methaDONE HCL 10 MG TABLET ONE (04:16)
[2022-05-10] MEDS ORDERED: methaDONE HCL 40 MG DISPERSABLE TABLET ONE (04:16)
[2022-05-10] MEDS: diazePAM 5 MG TABLET PO SCH ×3 (05:13→22:12)
[2022-05-10] MEDS: hydrOXYzine PAMOATE 25 MG CAPSULE (FP) PO SCH ×3 (05:13→13:33)
[2022-05-10] MEDS: NICOTINE POLACRILEX 2 MG GUM BUC PRN ×5 (05:15→19:42)
[2022-05-10] MEDS: diazePAM 5 MG TABLET PO PRN ×2 (08:24→16:57)
[2022-05-10] MEDS: ASPIRIN 81 MG CHEWABLE TABLETS PO SCH (10:15)
[2022-05-10] MEDS: PRENATAL VITAMINS W/ FOLIC ACID TABLET (FP) PO SCH (10:15)
[2022-05-10] MEDS: METHOCARBAMOL 750 MG TAB PO PRN (16:58)
[2022-05-10] MEDS: ACETAMINOPHEN 325 MG TABLET (FP) PO PRN (19:40)
[2022-05-10] MEDS: hydrOXYzine PAMOATE 50 MG CAPSULE (FP) PO PRN (19:41)
[2022-05-10] MEDS: THIAMINE HCL 100 MG TABLET (FP) PO SCH (23:08)
[2022-05-11] MEDS: METHOCARBAMOL 750 MG TAB PO PRN ×4 (01:26→22:09)
[2022-05-11] MEDS: diazePAM 5 MG TABLET PO PRN ×3 (01:26→14:51)
[2022-05-11] MEDS ORDERED: methaDONE HCL 10 MG TABLET ONE (04:40)
[2022-05-11] MEDS ORDERED: methaDONE HCL 40 MG DISPERSABLE TABLET ONE (04:40)
[2022-05-11] MEDS: diazePAM 5 MG TABLET PO SCH ×2 (05:30→19:00)
[2022-05-11] MEDS: hydrOXYzine PAMOATE 50 MG CAPSULE (FP) PO PRN ×3 (05:35→19:50)
[2022-05-11] MEDS: PRENATAL VITAMINS W/ FOLIC ACID TABLET (FP) PO SCH (10:25)
[2022-05-11] MEDS: ASPIRIN 81 MG CHEWABLE TABLETS PO SCH (10:26)
[2022-05-11] MEDS: NICOTINE POLACRILEX 2 MG GUM BUC PRN ×3 (10:27→22:10)
[2022-05-11] MEDS: ACETAMINOPHEN 325 MG TABLET (FP) PO PRN (12:20)
[2022-05-11] MEDS: SUVOREXANT 15 MG TABLET PO PRN (22:09)
[2022-05-11] MEDS: THIAMINE HCL 100 MG TABLET (FP) PO SCH (22:09)
[2022-05-12] MEDS: hydrOXYzine PAMOATE 50 MG CAPSULE (FP) PO PRN ×2 (01:51→10:21)
[2022-05-12] MEDS ORDERED: methaDONE HCL 10 MG TABLET ONE (04:09)
[2022-05-12] MEDS ORDERED: methaDONE HCL 40 MG DISPERSABLE TABLET ONE (04:09)
[2022-05-12] MEDS: METHOCARBAMOL 750 MG TAB PO PRN ×2 (05:20→12:04)
[2022-05-12] MEDS ORDERED: diazePAM 5 MG TABLET PO ONE (06:00)
[2022-05-12 09:32] VITALS: BP 128/73; PULSE 80; TEMP 97.8
[2022-05-12] MEDS: ASPIRIN 81 MG CHEWABLE TABLETS PO SCH (10:19)
[2022-05-12] MEDS: PRENATAL VITAMINS W/ FOLIC ACID TABLET (FP) PO SCH (10:19)
[2022-05-12] MEDS: NICOTINE POLACRILEX 2 MG GUM BUC PRN (10:22)
== END 2022-05-12 12:15 | disposition other institution (70) | DRG 773 ==
LOC: YASAS 14:06 → Y6N 17:53
PROVIDERS: ADMIT Allergy & Immunology; ATTEND Surgery
PROC: HZ2ZZZZ Detoxification Services for Substance Abuse Treatment (ICD-10-PCS; principal; 2022-05-08)
DX: F10.230 Alcohol dependence with withdrawal, uncomplicated (principal); F11.20 Opioid dependence, uncomplicated; F13.20 Sedative, hypnotic or anxiolytic dependence, uncomplicated; F14.20 Cocaine dependence, uncomplicated; F17.210 Nicotine dependence, cigarettes, uncomplicated; F19.282 Other psychoactive substance dependence with psychoactive substance-induced sleep disorder; F19.280 Other psychoactive substance dependence with psychoactive substance-induced anxiety disorder; K21.9 Gastro-esophageal reflux disease without esophagitis; M54.59 Other low back pain; G89.29 Other chronic pain; Z86.16 Personal history of COVID-19; Z86.59 Personal history of other mental and behavioral disorders; Z86.69 Personal history of other diseases of the nervous system and sense organs; Z86.718 Personal history of other venous thrombosis and embolism; Z56.0 Unemployment, unspecified; Z59.00 Homelessness unspecified
CPT/HCPCS: 36415; 80053; 85027; 86780; 93005; 93010; C9803-CS; U0003; U0005

== ENCOUNTER 2022-05-12 12:21 | Inpatient (IN) | payer OTHER ==
[2022-05-12] MEDS ORDERED: MAGNESIUM CITRATE 300 ML BOTTLE PO PRN (13:42)
[2022-05-12] MEDS ORDERED: MAGNESIUM HYDROX 2400MG/30ML ORAL SUSPENSION 30 ML CUP PO PRN (13:42)
[2022-05-12] MEDS ORDERED: NALOXONE HCL (KLOXXADO) 8 MG SPRAY NS PRN (13:42)
[2022-05-12] MEDS ORDERED: guaiFENesin 200 MG/10 ML 10 ML UNIT-DOSE CUPS PO PRN (13:42)
[2022-05-12] MEDS ORDERED: MAG HYDROX/AL HYDROX/SIMETH 30 ML UNIT-DOSE CUP PO PRN (13:42)
[2022-05-12] MEDS ORDERED: LOPERAMIDE HCL 2 MG CAPSULE PO PRN (13:42)
[2022-05-12] MEDS ORDERED: NICOTINE 10 MG CARTRIDGE (INHALER) IH PRN (13:42)
[2022-05-12] MEDS ORDERED: P-EPHED 60MG/TRIPROLIDI 2.5MG TABLET PO PRN (13:42)
[2022-05-12] MEDS: hydrOXYzine PAMOATE 25 MG CAPSULE (FP) PO SCH ×3 (14:27→21:32)
[2022-05-12] MEDS: METHOCARBAMOL 750 MG TABLET PO SCH ×2 (14:54→21:32)
[2022-05-12] MEDS: THIAMINE HCL 100 MG TABLET (FP) PO SCH (21:32)
[2022-05-12] MEDS: SUVOREXANT 15 MG TABLET PO PRN (21:34)
[2022-05-12] MEDS: NICOTINE POLACRILEX 2 MG GUM BUC PRN (21:35)
[2022-05-12] MEDS ORDERED: MELATONIN 5 MG TABLETS PO SCH (22:00)
[2022-05-13] MEDS ORDERED: methaDONE HCL 10 MG TABLET ONE (04:01)
[2022-05-13] MEDS ORDERED: methaDONE HCL 40 MG DISPERSABLE TABLET ONE (04:02)
[2022-05-13] MEDS ORDERED: methaDONE HCL 10 MG TABLET PO SCH (06:00)
[2022-05-13] MEDS: METHOCARBAMOL 750 MG TABLET PO SCH ×3 (06:42→21:35)
[2022-05-13] MEDS: hydrOXYzine PAMOATE 25 MG CAPSULE (FP) PO SCH ×2 (06:42→09:51)
[2022-05-13] MEDS: NICOTINE POLACRILEX 2 MG GUM BUC PRN ×4 (06:44→21:37)
[2022-05-13] MEDS: PRENATAL VITAMINS W/ FOLIC ACID TABLET (FP) PO SCH (09:49)
[2022-05-13] MEDS: NICOTINE 7 MG/24 HOURS TOPICAL PATCH TD SCH (09:50)
[2022-05-13 10:05] LABS: URINE APPEARANCE CLEAR; URINE BILIRUBIN NEGATIVE (NEGATIVE); URINE COLOR YELLOW; URINE GLUCOSE (UA) NEGATIVE (NEGATIVE); URINE KETONE NEGATIVE (NEGATIVE); URINE LEUK ESTERASE NEGATIVE (NEGATIVE); URINE NITRITE NEGATIVE (NEGATIVE); URINE PROTEIN NEGATIVE (NEGATIVE); URINE UROBILINOGEN 0.2 mg/dL (0.2-1.0)
[2022-05-13 10:54] LABS: SYPHILIS W/ RPR CONF NON-REACTIVE (NONREACTIVE)
[2022-05-13] MEDS: hydrOXYzine PAMOATE 25 MG CAPSULE (FP) PO PRN ×3 (13:39→21:34)
[2022-05-13] MEDS: THIAMINE HCL 100 MG TABLET (FP) PO SCH (21:35)
[2022-05-13] MEDS: SUVOREXANT 15 MG TABLET PO PRN (21:35)
[2022-05-14] MEDS ORDERED: methaDONE HCL 10 MG TABLET ONE (05:31)
[2022-05-14] MEDS ORDERED: methaDONE HCL 40 MG DISPERSABLE TABLET ONE (05:32)
[2022-05-14] MEDS: METHOCARBAMOL 750 MG TABLET PO SCH ×3 (06:12→21:29)
[2022-05-14] MEDS: hydrOXYzine PAMOATE 25 MG CAPSULE (FP) PO PRN ×5 (06:13→21:29)
[2022-05-14] MEDS: NICOTINE POLACRILEX 2 MG GUM BUC PRN ×4 (06:13→18:52)
[2022-05-14] MEDS: PRENATAL VITAMINS W/ FOLIC ACID TABLET (FP) PO SCH (10:09)
[2022-05-14] MEDS: NICOTINE 7 MG/24 HOURS TOPICAL PATCH TD SCH (10:09)
[2022-05-14] MEDS: THIAMINE HCL 100 MG TABLET (FP) PO SCH (21:29)
[2022-05-14] MEDS: SUVOREXANT 15 MG TABLET PO PRN (21:30)
[2022-05-15] MEDS ORDERED: methaDONE HCL 40 MG DISPERSABLE TABLET ONE (04:11)
[2022-05-15] MEDS ORDERED: methaDONE HCL 10 MG TABLET ONE (04:11)
[2022-05-15] MEDS: METHOCARBAMOL 750 MG TABLET PO SCH ×3 (06:18→21:39)
[2022-05-15] MEDS: hydrOXYzine PAMOATE 25 MG CAPSULE (FP) PO PRN ×5 (06:18→21:39)
[2022-05-15] MEDS: PRENATAL VITAMINS W/ FOLIC ACID TABLET (FP) PO SCH (10:04)
[2022-05-15] MEDS: NICOTINE 7 MG/24 HOURS TOPICAL PATCH TD SCH (10:04)
[2022-05-15] MEDS: NICOTINE POLACRILEX 2 MG GUM BUC PRN ×3 (10:05→21:39)
[2022-05-15] MEDS: ASPIRIN 81 MG CHEWABLE TABLETS PO SCH (10:23)
[2022-05-15] MEDS: THIAMINE HCL 100 MG TABLET (FP) PO SCH (21:39)
[2022-05-15] MEDS: SUVOREXANT 15 MG TABLET PO PRN (21:40)
[2022-05-16] MEDS: hydrOXYzine PAMOATE 25 MG CAPSULE (FP) PO PRN ×5 (01:51→23:40)
[2022-05-16] MEDS ORDERED: methaDONE HCL 40 MG DISPERSABLE TABLET ONE (03:43)
[2022-05-16] MEDS ORDERED: methaDONE HCL 10 MG TABLET ONE (03:43)
[2022-05-16] MEDS: METHOCARBAMOL 750 MG TABLET PO SCH ×3 (06:19→21:57)
[2022-05-16] MEDS: PRENATAL VITAMINS W/ FOLIC ACID TABLET (FP) PO SCH (10:31)
[2022-05-16] MEDS: NICOTINE 7 MG/24 HOURS TOPICAL PATCH TD SCH (10:31)
[2022-05-16] MEDS: ASPIRIN 81 MG CHEWABLE TABLETS PO SCH (10:32)
[2022-05-16] MEDS: NICOTINE POLACRILEX 2 MG GUM BUC PRN ×3 (10:32→17:26)
[2022-05-16] MEDS: SUVOREXANT 15 MG TABLET PO PRN (21:57)
[2022-05-16] MEDS: THIAMINE HCL 100 MG TABLET (FP) PO SCH (21:57)
[2022-05-17] MEDS ORDERED: methaDONE HCL 10 MG TABLET ONE (03:59)
[2022-05-17] MEDS ORDERED: methaDONE HCL 40 MG DISPERSABLE TABLET ONE (04:00)
[2022-05-17] MEDS: hydrOXYzine PAMOATE 25 MG CAPSULE (FP) PO PRN ×2 (06:11→10:01)
[2022-05-17] MEDS: METHOCARBAMOL 750 MG TABLET PO SCH ×3 (06:11→21:41)
[2022-05-17] MEDS: ASPIRIN 81 MG CHEWABLE TABLETS PO SCH (09:45)
[2022-05-17] MEDS: PRENATAL VITAMINS W/ FOLIC ACID TABLET (FP) PO SCH (09:45)
[2022-05-17] MEDS: NICOTINE 7 MG/24 HOURS TOPICAL PATCH TD SCH (09:45)
[2022-05-17] MEDS: NICOTINE POLACRILEX 2 MG GUM BUC PRN ×2 (09:48→21:41)
[2022-05-17] MEDS: hydrOXYzine PAMOATE 50 MG CAPSULE (FP) PO SCH ×2 (14:29→21:41)
[2022-05-17] MEDS: SUVOREXANT 15 MG TABLET PO PRN (21:40)
[2022-05-17] MEDS: THIAMINE HCL 100 MG TABLET (FP) PO SCH (21:40)
[2022-05-18] MEDS ORDERED: methaDONE HCL 40 MG DISPERSABLE TABLET ONE (03:08)
[2022-05-18] MEDS ORDERED: methaDONE HCL 10 MG TABLET ONE (03:08)
[2022-05-18] MEDS: hydrOXYzine PAMOATE 50 MG CAPSULE (FP) PO SCH ×3 (06:11→21:37)
[2022-05-18] MEDS: METHOCARBAMOL 750 MG TABLET PO SCH ×3 (06:11→21:40)
[2022-05-18] MEDS: NICOTINE POLACRILEX 2 MG GUM BUC PRN ×2 (06:14→10:08)
[2022-05-18] MEDS: PRENATAL VITAMINS W/ FOLIC ACID TABLET (FP) PO SCH (10:07)
[2022-05-18] MEDS: ASPIRIN 81 MG CHEWABLE TABLETS PO SCH (10:07)
[2022-05-18] MEDS: NICOTINE 7 MG/24 HOURS TOPICAL PATCH TD SCH (10:08)
[2022-05-18] MEDS: SUVOREXANT 15 MG TABLET PO PRN (21:37)
[2022-05-18] MEDS: THIAMINE HCL 100 MG TABLET (FP) PO SCH (21:37)
[2022-05-19] MEDS ORDERED: methaDONE HCL 40 MG DISPERSABLE TABLET ONE (03:57)
[2022-05-19] MEDS ORDERED: methaDONE HCL 10 MG TABLET ONE (03:57)
[2022-05-19] MEDS: METHOCARBAMOL 750 MG TABLET PO SCH ×3 (06:18→21:32)
[2022-05-19] MEDS: hydrOXYzine PAMOATE 50 MG CAPSULE (FP) PO SCH ×3 (06:18→21:32)
[2022-05-19] MEDS: NICOTINE POLACRILEX 2 MG GUM BUC PRN ×3 (06:20→21:32)
[2022-05-19] MEDS: PRENATAL VITAMINS W/ FOLIC ACID TABLET (FP) PO SCH (09:59)
[2022-05-19] MEDS: NICOTINE 7 MG/24 HOURS TOPICAL PATCH TD SCH (10:00)
[2022-05-19] MEDS: ASPIRIN 81 MG CHEWABLE TABLETS PO SCH (10:00)
[2022-05-19] MEDS: THIAMINE HCL 100 MG TABLET (FP) PO SCH (21:32)
[2022-05-19] MEDS: SUVOREXANT 15 MG TABLET PO PRN (21:32)
[2022-05-20] MEDS ORDERED: methaDONE HCL 10 MG TABLET ONE (04:04)
[2022-05-20] MEDS ORDERED: methaDONE HCL 40 MG DISPERSABLE TABLET ONE (04:05)
[2022-05-20] MEDS: METHOCARBAMOL 750 MG TABLET PO SCH ×3 (06:16→21:30)
[2022-05-20] MEDS: hydrOXYzine PAMOATE 50 MG CAPSULE (FP) PO SCH ×3 (06:16→21:30)
[2022-05-20] MEDS: NICOTINE POLACRILEX 2 MG GUM BUC PRN ×4 (06:18→21:31)
[2022-05-20] MEDS: PRENATAL VITAMINS W/ FOLIC ACID TABLET (FP) PO SCH (09:52)
[2022-05-20] MEDS: NICOTINE 7 MG/24 HOURS TOPICAL PATCH TD SCH (09:53)
[2022-05-20] MEDS: ASPIRIN 81 MG CHEWABLE TABLETS PO SCH (09:53)
[2022-05-20] MEDS: THIAMINE HCL 100 MG TABLET (FP) PO SCH (21:30)
[2022-05-20] MEDS: SUVOREXANT 15 MG TABLET PO PRN (21:30)
[2022-05-21] MEDS ORDERED: methaDONE HCL 10 MG TABLET ONE (03:14)
[2022-05-21] MEDS ORDERED: methaDONE HCL 40 MG DISPERSABLE TABLET ONE (03:15)
[2022-05-21] MEDS: hydrOXYzine PAMOATE 50 MG CAPSULE (FP) PO SCH ×3 (06:14→21:33)
[2022-05-21] MEDS: METHOCARBAMOL 750 MG TABLET PO SCH ×3 (06:14→21:29)
[2022-05-21] MEDS: NICOTINE POLACRILEX 2 MG GUM BUC PRN ×3 (06:17→13:31)
[2022-05-21] MEDS: PRENATAL VITAMINS W/ FOLIC ACID TABLET (FP) PO SCH (11:06)
[2022-05-21] MEDS: ASPIRIN 81 MG CHEWABLE TABLETS PO SCH (11:07)
[2022-05-21] MEDS: NICOTINE 7 MG/24 HOURS TOPICAL PATCH TD SCH (11:11)
[2022-05-21] MEDS ORDERED: hydrOXYzine PAMOATE 25 MG CAPSULE (FP) PO ONE ×2 (12:51→19:35)
[2022-05-21] MEDS: THIAMINE HCL 100 MG TABLET (FP) PO SCH (21:29)
[2022-05-21] MEDS: SUVOREXANT 15 MG TABLET PO PRN (21:32)
[2022-05-22] MEDS ORDERED: hydrOXYzine PAMOATE 25 MG CAPSULE (FP) PO ONE (03:16)
[2022-05-22] MEDS ORDERED: methaDONE HCL 40 MG DISPERSABLE TABLET ONE (03:17)
[2022-05-22] MEDS ORDERED: methaDONE HCL 10 MG TABLET ONE (03:17)
[2022-05-22] MEDS: METHOCARBAMOL 750 MG TABLET PO SCH ×3 (06:34→21:35)
[2022-05-22] MEDS: hydrOXYzine PAMOATE 50 MG CAPSULE (FP) PO SCH ×3 (06:34→21:35)
[2022-05-22] MEDS: NICOTINE POLACRILEX 2 MG GUM BUC PRN ×2 (06:37→10:06)
[2022-05-22] MEDS: PRENATAL VITAMINS W/ FOLIC ACID TABLET (FP) PO SCH (10:05)
[2022-05-22] MEDS: ASPIRIN 81 MG CHEWABLE TABLETS PO SCH (10:05)
[2022-05-22] MEDS: NICOTINE 7 MG/24 HOURS TOPICAL PATCH TD SCH (10:06)
[2022-05-22] MEDS: THIAMINE HCL 100 MG TABLET (FP) PO SCH (21:35)
[2022-05-22] MEDS: SUVOREXANT 5 MG TABLET PO PRN (21:35)
[2022-05-23] MEDS ORDERED: methaDONE HCL 40 MG DISPERSABLE TABLET ONE (03:24)
[2022-05-23] MEDS ORDERED: methaDONE HCL 10 MG TABLET ONE (03:24)
[2022-05-23] MEDS: hydrOXYzine PAMOATE 50 MG CAPSULE (FP) PO SCH ×3 (06:17→21:29)
[2022-05-23] MEDS: METHOCARBAMOL 750 MG TABLET PO SCH ×3 (06:18→21:29)
[2022-05-23] MEDS: PRENATAL VITAMINS W/ FOLIC ACID TABLET (FP) PO SCH (09:58)
[2022-05-23] MEDS: NICOTINE 7 MG/24 HOURS TOPICAL PATCH TD SCH (09:58)
[2022-05-23] MEDS: ASPIRIN 81 MG CHEWABLE TABLETS PO SCH (09:59)
[2022-05-23] MEDS: NICOTINE POLACRILEX 2 MG GUM BUC PRN ×3 (09:59→21:30)
[2022-05-23] MEDS: SUVOREXANT 5 MG TABLET PO PRN (21:29)
[2022-05-23] MEDS: THIAMINE HCL 100 MG TABLET (FP) PO SCH (21:29)
[2022-05-24] MEDS ORDERED: methaDONE HCL 10 MG TABLET ONE (04:17)
[2022-05-24] MEDS ORDERED: methaDONE HCL 40 MG DISPERSABLE TABLET ONE (04:17)
[2022-05-24] MEDS: hydrOXYzine PAMOATE 50 MG CAPSULE (FP) PO SCH ×2 (05:49→14:19)
[2022-05-24] MEDS: METHOCARBAMOL 750 MG TABLET PO SCH ×3 (05:49→21:28)
[2022-05-24] MEDS: NICOTINE POLACRILEX 2 MG GUM BUC PRN ×4 (05:51→21:49)
[2022-05-24] MEDS: ASPIRIN 81 MG CHEWABLE TABLETS PO SCH (10:03)
[2022-05-24] MEDS: NICOTINE 7 MG/24 HOURS TOPICAL PATCH TD SCH (10:03)
[2022-05-24] MEDS: PRENATAL VITAMINS W/ FOLIC ACID TABLET (FP) PO SCH (10:03)
[2022-05-24] MEDS: THIAMINE HCL 100 MG TABLET (FP) PO SCH (21:28)
[2022-05-24] MEDS ORDERED: hydrOXYzine PAMOATE 25 MG CAPSULE (FP) PO ONE (21:39)
[2022-05-24] MEDS ORDERED: SUVOREXANT 15 MG TABLET PO PRN (22:00)
[2022-05-25] MEDS ORDERED: methaDONE HCL 10 MG TABLET ONE (03:09)
[2022-05-25] MEDS ORDERED: methaDONE HCL 40 MG DISPERSABLE TABLET ONE (03:09)
[2022-05-25] MEDS: METHOCARBAMOL 750 MG TABLET PO SCH ×3 (06:23→21:45)
[2022-05-25] MEDS: ASPIRIN 81 MG CHEWABLE TABLETS PO SCH (10:13)
[2022-05-25] MEDS: PRENATAL VITAMINS W/ FOLIC ACID TABLET (FP) PO SCH (10:13)
[2022-05-25] MEDS: NICOTINE 7 MG/24 HOURS TOPICAL PATCH TD SCH (10:14)
[2022-05-25] MEDS: NICOTINE POLACRILEX 2 MG GUM BUC PRN ×2 (10:16→21:47)
[2022-05-25] MEDS ORDERED: hydrOXYzine PAMOATE 50 MG CAPSULE (FP) PO PRN (11:29)
[2022-05-25] MEDS: hydrOXYzine PAMOATE 50 MG CAPSULE (FP) PO PRN ×2 (13:10→21:45)
[2022-05-25] MEDS: SUVOREXANT 20 MG TABLET PO PRN (21:44)
[2022-05-25] MEDS: THIAMINE HCL 100 MG TABLET (FP) PO SCH (21:45)
[2022-05-26] MEDS ORDERED: methaDONE HCL 40 MG DISPERSABLE TABLET ONE (03:33)
[2022-05-26] MEDS ORDERED: methaDONE HCL 10 MG TABLET ONE (03:33)
[2022-05-26] MEDS: IBUPROFEN 400 MG TABLET (FP) PO PRN (06:42)
[2022-05-26] MEDS: hydrOXYzine PAMOATE 50 MG CAPSULE (FP) PO PRN ×3 (06:44→21:18)
[2022-05-26] MEDS: METHOCARBAMOL 750 MG TABLET PO SCH ×3 (06:44→21:18)
[2022-05-26] MEDS: NICOTINE POLACRILEX 2 MG GUM BUC PRN ×4 (06:44→21:20)
[2022-05-26] MEDS: ASPIRIN 81 MG CHEWABLE TABLETS PO SCH (09:57)
[2022-05-26] MEDS: NICOTINE 7 MG/24 HOURS TOPICAL PATCH TD SCH (09:57)
[2022-05-26] MEDS: PRENATAL VITAMINS W/ FOLIC ACID TABLET (FP) PO SCH (09:57)
[2022-05-26] MEDS: THIAMINE HCL 100 MG TABLET (FP) PO SCH (21:18)
[2022-05-26] MEDS: SUVOREXANT 20 MG TABLET PO PRN (21:19)
[2022-05-26] MEDS: ACETAMINOPHEN 325 MG TABLET (FP) PO PRN (23:16)
[2022-05-27] MEDS ORDERED: methaDONE HCL 10 MG TABLET ONE (04:00)
[2022-05-27] MEDS ORDERED: methaDONE HCL 40 MG DISPERSABLE TABLET ONE (04:01)
[2022-05-27] MEDS: METHOCARBAMOL 750 MG TABLET PO SCH ×3 (06:58→21:45)
[2022-05-27] MEDS: IBUPROFEN 400 MG TABLET (FP) PO PRN ×3 (06:58→21:44)
[2022-05-27] MEDS: hydrOXYzine PAMOATE 50 MG CAPSULE (FP) PO PRN ×3 (06:58→21:45)
[2022-05-27] MEDS: NICOTINE 7 MG/24 HOURS TOPICAL PATCH TD SCH (10:29)
[2022-05-27] MEDS: NICOTINE POLACRILEX 2 MG GUM BUC PRN ×2 (10:29→21:47)
[2022-05-27] MEDS: ASPIRIN 81 MG CHEWABLE TABLETS PO SCH (10:29)
[2022-05-27] MEDS: PRENATAL VITAMINS W/ FOLIC ACID TABLET (FP) PO SCH (10:29)
[2022-05-27] MEDS: ACETAMINOPHEN 325 MG TABLET (FP) PO PRN (10:30)
[2022-05-27] MEDS: SUVOREXANT 20 MG TABLET PO PRN (21:43)
[2022-05-27] MEDS: THIAMINE HCL 100 MG TABLET (FP) PO SCH (21:45)
[2022-05-28] MEDS ORDERED: methaDONE HCL 40 MG DISPERSABLE TABLET ONE (04:05)
[2022-05-28] MEDS ORDERED: methaDONE HCL 10 MG TABLET ONE (04:05)
[2022-05-28] MEDS: IBUPROFEN 400 MG TABLET (FP) PO PRN ×2 (06:27→21:53)
[2022-05-28] MEDS: METHOCARBAMOL 750 MG TABLET PO SCH ×3 (06:28→21:54)
[2022-05-28] MEDS: hydrOXYzine PAMOATE 50 MG CAPSULE (FP) PO PRN ×4 (06:28→23:07)
[2022-05-28] MEDS: ASPIRIN 81 MG CHEWABLE TABLETS PO SCH (10:21)
[2022-05-28] MEDS: ACETAMINOPHEN 325 MG TABLET (FP) PO PRN (10:22)
[2022-05-28] MEDS: NICOTINE 7 MG/24 HOURS TOPICAL PATCH TD SCH (10:23)
[2022-05-28] MEDS: PRENATAL VITAMINS W/ FOLIC ACID TABLET (FP) PO SCH (10:23)
[2022-05-28] MEDS: NICOTINE POLACRILEX 2 MG GUM BUC PRN ×2 (13:51→19:11)
[2022-05-28] MEDS: SUVOREXANT 20 MG TABLET PO PRN (21:53)
[2022-05-28] MEDS: THIAMINE HCL 100 MG TABLET (FP) PO SCH (21:54)
[2022-05-29] MEDS ORDERED: methaDONE HCL 40 MG DISPERSABLE TABLET ONE (03:49)
[2022-05-29] MEDS ORDERED: methaDONE HCL 10 MG TABLET ONE (03:49)
[2022-05-29] MEDS: hydrOXYzine PAMOATE 50 MG CAPSULE (FP) PO PRN ×4 (06:03→21:31)
[2022-05-29] MEDS: METHOCARBAMOL 750 MG TABLET PO SCH ×3 (06:04→21:30)
[2022-05-29] MEDS: NICOTINE POLACRILEX 2 MG GUM BUC PRN ×4 (06:06→21:32)
[2022-05-29] MEDS: ASPIRIN 81 MG CHEWABLE TABLETS PO SCH (10:05)
[2022-05-29] MEDS: PRENATAL VITAMINS W/ FOLIC ACID TABLET (FP) PO SCH (10:05)
[2022-05-29] MEDS: NICOTINE 7 MG/24 HOURS TOPICAL PATCH TD SCH (10:06)
[2022-05-29] MEDS ORDERED: hydrOXYzine PAMOATE 25 MG CAPSULE (FP) PO ONE (13:02)
[2022-05-29] MEDS: SUVOREXANT 20 MG TABLET PO PRN (21:29)
[2022-05-29] MEDS: THIAMINE HCL 100 MG TABLET (FP) PO SCH (21:30)
[2022-05-29] MEDS: IBUPROFEN 400 MG TABLET (FP) PO PRN (21:31)
[2022-05-30] MEDS ORDERED: methaDONE HCL 10 MG TABLET ONE (03:51)
[2022-05-30] MEDS ORDERED: methaDONE HCL 40 MG DISPERSABLE TABLET ONE (03:52)
[2022-05-30] MEDS: METHOCARBAMOL 750 MG TABLET PO SCH ×3 (06:28→21:29)
[2022-05-30] MEDS: ACETAMINOPHEN 325 MG TABLET (FP) PO PRN (06:28)
[2022-05-30] MEDS: hydrOXYzine PAMOATE 50 MG CAPSULE (FP) PO PRN ×3 (06:28→21:29)
[2022-05-30] MEDS: NICOTINE POLACRILEX 2 MG GUM BUC PRN ×5 (06:31→21:30)
[2022-05-30] MEDS: PRENATAL VITAMINS W/ FOLIC ACID TABLET (FP) PO SCH (10:09)
[2022-05-30] MEDS: NICOTINE 7 MG/24 HOURS TOPICAL PATCH TD SCH (10:09)
[2022-05-30] MEDS: ASPIRIN 81 MG CHEWABLE TABLETS PO SCH (10:09)
[2022-05-30] MEDS: IBUPROFEN 400 MG TABLET (FP) PO PRN (14:26)
[2022-05-30] MEDS: SUVOREXANT 20 MG TABLET PO PRN (21:28)
[2022-05-30] MEDS: THIAMINE HCL 100 MG TABLET (FP) PO SCH (21:29)
[2022-05-31] MEDS ORDERED: methaDONE HCL 40 MG DISPERSABLE TABLET ONE (03:53)
[2022-05-31] MEDS ORDERED: methaDONE HCL 10 MG TABLET ONE (03:53)
[2022-05-31] MEDS: METHOCARBAMOL 750 MG TABLET PO SCH ×3 (06:04→21:26)
[2022-05-31] MEDS: hydrOXYzine PAMOATE 50 MG CAPSULE (FP) PO PRN ×2 (06:04→21:26)
[2022-05-31] MEDS: ASPIRIN 81 MG CHEWABLE TABLETS PO SCH (09:55)
[2022-05-31] MEDS: PRENATAL VITAMINS W/ FOLIC ACID TABLET (FP) PO SCH (09:55)
[2022-05-31] MEDS: NICOTINE 7 MG/24 HOURS TOPICAL PATCH TD SCH (09:56)
[2022-05-31] MEDS: NICOTINE POLACRILEX 2 MG GUM BUC PRN ×3 (09:56→21:28)
[2022-05-31] MEDS: IBUPROFEN 400 MG TABLET (FP) PO PRN ×2 (14:46→21:26)
[2022-05-31] MEDS: THIAMINE HCL 100 MG TABLET (FP) PO SCH (21:26)
[2022-05-31] MEDS: SUVOREXANT 10 MG TABLET PO PRN (21:27)
[2022-06-01] MEDS ORDERED: methaDONE HCL 10 MG TABLET ONE (02:41)
[2022-06-01] MEDS ORDERED: methaDONE HCL 40 MG DISPERSABLE TABLET ONE (02:41)
[2022-06-01] MEDS: METHOCARBAMOL 750 MG TABLET PO SCH ×3 (06:08→21:25)
[2022-06-01] MEDS: hydrOXYzine PAMOATE 50 MG CAPSULE (FP) PO PRN ×3 (06:08→21:24)
[2022-06-01] MEDS: PRENATAL VITAMINS W/ FOLIC ACID TABLET (FP) PO SCH (10:10)
[2022-06-01] MEDS: NICOTINE 7 MG/24 HOURS TOPICAL PATCH TD SCH (10:11)
[2022-06-01] MEDS: ASPIRIN 81 MG CHEWABLE TABLETS PO SCH (10:11)
[2022-06-01] MEDS: ACETAMINOPHEN 325 MG TABLET (FP) PO PRN (13:06)
[2022-06-01] MEDS: NICOTINE POLACRILEX 2 MG GUM BUC PRN ×2 (14:24→21:26)
[2022-06-01] MEDS: THIAMINE HCL 100 MG TABLET (FP) PO SCH (21:24)
[2022-06-01] MEDS: IBUPROFEN 400 MG TABLET (FP) PO PRN (21:24)
[2022-06-01] MEDS: SUVOREXANT 10 MG TABLET PO PRN (21:24)
[2022-06-02] MEDS ORDERED: methaDONE HCL 10 MG TABLET ONE (03:14)
[2022-06-02] MEDS ORDERED: methaDONE HCL 40 MG DISPERSABLE TABLET ONE (03:15)
[2022-06-02] MEDS: hydrOXYzine PAMOATE 50 MG CAPSULE (FP) PO PRN ×2 (06:12→21:34)
[2022-06-02] MEDS: IBUPROFEN 400 MG TABLET (FP) PO PRN (06:12)
[2022-06-02] MEDS: METHOCARBAMOL 750 MG TABLET PO SCH ×3 (06:15→21:34)
[2022-06-02] MEDS: NICOTINE 7 MG/24 HOURS TOPICAL PATCH TD SCH (09:54)
[2022-06-02] MEDS: PRENATAL VITAMINS W/ FOLIC ACID TABLET (FP) PO SCH (09:54)
[2022-06-02] MEDS: ASPIRIN 81 MG CHEWABLE TABLETS PO SCH (09:54)
[2022-06-02] MEDS: NICOTINE POLACRILEX 2 MG GUM BUC PRN ×3 (09:55→21:36)
[2022-06-02] MEDS: THIAMINE HCL 100 MG TABLET (FP) PO SCH (21:34)
[2022-06-02] MEDS: SUVOREXANT 10 MG TABLET PO PRN (21:35)
[2022-06-03] MEDS ORDERED: methaDONE HCL 10 MG TABLET ONE (06:07)
[2022-06-03] MEDS ORDERED: methaDONE HCL 40 MG DISPERSABLE TABLET ONE (06:08)
[2022-06-03] MEDS: METHOCARBAMOL 750 MG TABLET PO SCH ×3 (06:10→21:25)
[2022-06-03 07:04] VITALS: RESP 18
[2022-06-03] MEDS: PRENATAL VITAMINS W/ FOLIC ACID TABLET (FP) PO SCH (10:02)
[2022-06-03] MEDS: NICOTINE 7 MG/24 HOURS TOPICAL PATCH TD SCH (10:03)
[2022-06-03] MEDS: ASPIRIN 81 MG CHEWABLE TABLETS PO SCH (10:03)
[2022-06-03] MEDS: IBUPROFEN 400 MG TABLET (FP) PO PRN (10:03)
[2022-06-03] MEDS: NICOTINE POLACRILEX 2 MG GUM BUC PRN ×2 (10:04→21:27)
[2022-06-03] MEDS: hydrOXYzine PAMOATE 50 MG CAPSULE (FP) PO PRN ×2 (11:49→21:26)
[2022-06-03] MEDS: THIAMINE HCL 100 MG TABLET (FP) PO SCH (21:27)
[2022-06-03] MEDS: SUVOREXANT 10 MG TABLET PO PRN (21:27)
[2022-06-04] MEDS ORDERED: methaDONE HCL 10 MG TABLET ONE (02:49)
[2022-06-04] MEDS ORDERED: methaDONE HCL 40 MG DISPERSABLE TABLET ONE (02:50)
[2022-06-04] MEDS: METHOCARBAMOL 750 MG TABLET PO SCH ×3 (06:28→21:37)
[2022-06-04] MEDS: NICOTINE POLACRILEX 2 MG GUM BUC PRN ×4 (06:30→21:40)
[2022-06-04] MEDS: PRENATAL VITAMINS W/ FOLIC ACID TABLET (FP) PO SCH (09:55)
[2022-06-04] MEDS: ASPIRIN 81 MG CHEWABLE TABLETS PO SCH (09:55)
[2022-06-04] MEDS: NICOTINE 7 MG/24 HOURS TOPICAL PATCH TD SCH (09:55)
[2022-06-04] MEDS: hydrOXYzine PAMOATE 50 MG CAPSULE (FP) PO PRN (21:37)
[2022-06-04] MEDS: THIAMINE HCL 100 MG TABLET (FP) PO SCH (21:38)
[2022-06-04] MEDS: SUVOREXANT 10 MG TABLET PO PRN (21:39)
[2022-06-05] MEDS ORDERED: methaDONE HCL 10 MG TABLET ONE (04:57)
[2022-06-05] MEDS ORDERED: methaDONE HCL 40 MG DISPERSABLE TABLET ONE (04:57)
[2022-06-05] MEDS: METHOCARBAMOL 750 MG TABLET PO SCH ×3 (06:31→21:42)
[2022-06-05] MEDS: NICOTINE POLACRILEX 2 MG GUM BUC PRN ×5 (06:32→21:43)
[2022-06-05] MEDS: PRENATAL VITAMINS W/ FOLIC ACID TABLET (FP) PO SCH (10:03)
[2022-06-05] MEDS: hydrOXYzine PAMOATE 50 MG CAPSULE (FP) PO PRN ×3 (10:04→21:42)
[2022-06-05] MEDS: NICOTINE 7 MG/24 HOURS TOPICAL PATCH TD SCH (10:04)
[2022-06-05] MEDS: ASPIRIN 81 MG CHEWABLE TABLETS PO SCH (10:04)
[2022-06-05] MEDS: SUVOREXANT 10 MG TABLET PO PRN (21:41)
[2022-06-05] MEDS: THIAMINE HCL 100 MG TABLET (FP) PO SCH (21:42)
[2022-06-05] MEDS: IBUPROFEN 400 MG TABLET (FP) PO PRN (21:42)
[2022-06-06] MEDS ORDERED: methaDONE HCL 10 MG TABLET ONE (03:41)
[2022-06-06] MEDS ORDERED: methaDONE HCL 40 MG DISPERSABLE TABLET ONE (03:41)
[2022-06-06] MEDS: hydrOXYzine PAMOATE 50 MG CAPSULE (FP) PO PRN ×3 (06:35→21:48)
[2022-06-06] MEDS: METHOCARBAMOL 750 MG TABLET PO SCH ×3 (06:35→21:48)
[2022-06-06] MEDS: ASPIRIN 81 MG CHEWABLE TABLETS PO SCH (09:56)
[2022-06-06] MEDS: NICOTINE 7 MG/24 HOURS TOPICAL PATCH TD SCH (09:56)
[2022-06-06] MEDS: PRENATAL VITAMINS W/ FOLIC ACID TABLET (FP) PO SCH (09:56)
[2022-06-06] MEDS: NICOTINE POLACRILEX 2 MG GUM BUC PRN ×3 (09:56→21:48)
[2022-06-06] MEDS: THIAMINE HCL 100 MG TABLET (FP) PO SCH (21:48)
[2022-06-06] MEDS: SUVOREXANT 20 MG TABLET PO PRN (21:48)
[2022-06-07] MEDS ORDERED: methaDONE HCL 40 MG DISPERSABLE TABLET ONE (04:14)
[2022-06-07] MEDS ORDERED: methaDONE HCL 10 MG TABLET ONE (04:14)
[2022-06-07] MEDS: METHOCARBAMOL 750 MG TABLET PO SCH ×3 (06:18→21:46)
[2022-06-07] MEDS: hydrOXYzine PAMOATE 50 MG CAPSULE (FP) PO PRN ×3 (06:18→21:46)
[2022-06-07] MEDS: NICOTINE POLACRILEX 2 MG GUM BUC PRN ×3 (06:21→21:47)
[2022-06-07] MEDS: PRENATAL VITAMINS W/ FOLIC ACID TABLET (FP) PO SCH (10:05)
[2022-06-07] MEDS: NICOTINE 7 MG/24 HOURS TOPICAL PATCH TD SCH (10:05)
[2022-06-07] MEDS: ASPIRIN 81 MG CHEWABLE TABLETS PO SCH (10:06)
[2022-06-07] MEDS: THIAMINE HCL 100 MG TABLET (FP) PO SCH (21:46)
[2022-06-07] MEDS: SUVOREXANT 20 MG TABLET PO PRN (21:46)
[2022-06-08] MEDS ORDERED: methaDONE HCL 10 MG TABLET ONE (05:47)
[2022-06-08] MEDS ORDERED: methaDONE HCL 40 MG DISPERSABLE TABLET ONE (05:47)
[2022-06-08] MEDS: hydrOXYzine PAMOATE 50 MG CAPSULE (FP) PO PRN ×3 (06:53→21:29)
[2022-06-08] MEDS: IBUPROFEN 400 MG TABLET (FP) PO PRN (06:54)
[2022-06-08] MEDS: METHOCARBAMOL 750 MG TABLET PO SCH ×3 (06:55→21:29)
[2022-06-08] MEDS: ASPIRIN 81 MG CHEWABLE TABLETS PO SCH (09:58)
[2022-06-08] MEDS: PRENATAL VITAMINS W/ FOLIC ACID TABLET (FP) PO SCH (09:58)
[2022-06-08] MEDS: NICOTINE 7 MG/24 HOURS TOPICAL PATCH TD SCH (09:58)
[2022-06-08] MEDS: NICOTINE POLACRILEX 2 MG GUM BUC PRN ×2 (09:59→21:31)
[2022-06-08] MEDS: THIAMINE HCL 100 MG TABLET (FP) PO SCH (21:30)
[2022-06-08] MEDS: SUVOREXANT 20 MG TABLET PO PRN (21:31)
[2022-06-09] MEDS ORDERED: methaDONE HCL 40 MG DISPERSABLE TABLET ONE (06:42)
[2022-06-09] MEDS ORDERED: methaDONE HCL 10 MG TABLET ONE (06:42)
[2022-06-09] MEDS: hydrOXYzine PAMOATE 50 MG CAPSULE (FP) PO PRN (06:43)
[2022-06-09] MEDS: METHOCARBAMOL 750 MG TABLET PO SCH (06:43)
[2022-06-09 06:57] VITALS: BP 134/86; PULSE 94; TEMP 97.3
[2022-06-09] MEDS: ASPIRIN 81 MG CHEWABLE TABLETS PO SCH (09:15)
[2022-06-09] MEDS: PRENATAL VITAMINS W/ FOLIC ACID TABLET (FP) PO SCH (09:15)
[2022-06-09] MEDS: NICOTINE 7 MG/24 HOURS TOPICAL PATCH TD SCH (09:16)
[2022-06-09] MEDS: IBUPROFEN 400 MG TABLET (FP) PO PRN (09:18)
== END 2022-06-09 10:24 | disposition home or self-care (01) | DRG 772 ==
LOC: YASAS 12:21 → Y5N 12:22
PROVIDERS: ADMIT Allergy & Immunology; ATTEND Psychiatry & Neurology Pain Medicine
PROC: HZ42ZZZ Group Counseling for Substance Abuse Treatment, Cognitive-Behavioral (ICD-10-PCS; principal; 2022-05-12)
DX: F10.20 Alcohol dependence, uncomplicated (principal); F11.20 Opioid dependence, uncomplicated; F14.20 Cocaine dependence, uncomplicated; F17.210 Nicotine dependence, cigarettes, uncomplicated; K21.9 Gastro-esophageal reflux disease without esophagitis; M51.16 Intervertebral disc disorders with radiculopathy, lumbar region; Z86.69 Personal history of other diseases of the nervous system and sense organs; Z56.0 Unemployment, unspecified; Z59.00 Homelessness unspecified
CPT/HCPCS: 36415; 81003; 86780; 86803

== ENCOUNTER 2022-10-07 18:25 | Inpatient (IN) | payer OTHER ==
[2022-10-07 18:59] VITALS: BMI 22.8
[2022-10-07] MEDS ORDERED: MAG HYDROX/AL HYDROX/SIMETH 30 ML UNIT-DOSE CUP PO PRN (19:44)
[2022-10-07] MEDS ORDERED: POLYETHYLENE GLYCOL (HEALTHYLAX) 3350 17 GM PACKET PO PRN (19:44)
[2022-10-07] MEDS ORDERED: ACETAMINOPHEN 325 MG TABLET (FP) PO PRN ×2 (19:44)
[2022-10-07] MEDS ORDERED: BISMUTH SUBSALICYLATE 524 MG/30 ML PO PRN (19:44)
[2022-10-07] MEDS ORDERED: DICYCLOMINE HCL 10 MG CAPSULE PO PRN (19:44)
[2022-10-07] MEDS ORDERED: guaiFENesin 200 MG/10 ML 10 ML UNIT-DOSE CUPS PO PRN (19:44)
[2022-10-07] MEDS ORDERED: NALOXONE HCL (KLOXXADO) 8 MG SPRAY NS PRN (19:44)
[2022-10-07] MEDS ORDERED: P-EPHED 60MG/TRIPROLIDI 2.5MG TABLET PO PRN (19:44)
[2022-10-07] MEDS ORDERED: LORazepam 1 MG TABLET PO PRN (19:44)
[2022-10-07] MEDS ORDERED: MAGNESIUM HYDROX 2400MG/30ML ORAL SUSPENSION 30 ML CUP PO PRN (19:44)
[2022-10-07] MEDS ORDERED: LOPERAMIDE HCL 2 MG CAPSULE PO PRN (19:44)
[2022-10-07] MEDS ORDERED: IBUPROFEN 400 MG TABLET (FP) PO PRN (19:44)
[2022-10-07] MEDS ORDERED: BENZOCAINE/MENTHOL (CHLORASEPTIC ) LOZENGE MM PRN (19:44)
[2022-10-07] MEDS ORDERED: IBUPROFEN 600 MG TABLET (FP) PO PRN (19:44)
[2022-10-07] MEDS ORDERED: MELATONIN 5 MG TABLETS PO SCH (22:00)
[2022-10-07] MEDS: LORazepam 2 MG TABLET PO SCH (22:18)
[2022-10-07] MEDS: THIAMINE HCL 100 MG TABLET (FP) PO SCH (22:18)
[2022-10-07] MEDS: METHOCARBAMOL 500 MG TABLET PO PRN (22:19)
[2022-10-08] MEDS: LORazepam 2 MG TABLET PO SCH ×2 (05:58→10:47)
[2022-10-08] MEDS ORDERED: methaDONE HCL 40 MG DISPERSABLE TABLET PO SCH (06:00)
[2022-10-08] MEDS: NICOTINE 14 MG/24 HOURS TOPICAL PATCH TD SCH (10:46)
[2022-10-08] MEDS: PRENATAL VITAMINS W/ FOLIC ACID TABLET (FP) PO SCH (10:46)
[2022-10-08] MEDS: methaDONE HCL 40 MG DISPERSABLE TABLET PO SCH (10:47)
[2022-10-08 12:23] LABS: CALCIUM 9.1 mg/dL (8.5-10.1)
[2022-10-08 12:24] LABS: ALBUMIN 3.6 g/dl (3.4-5.0); BLOOD UREA NITROGEN 9.2 mg/dL (7-18)
[2022-10-08 12:27] LABS: CREATININE 0.7 mg/dL (0.55-1.3)
[2022-10-08 12:28] LABS: TOT PROT 6.6 g/dl (6.4-8.2)
[2022-10-08 12:29] LABS: BILIRUBIN,TOTAL 0.2 mg/dL (0.2-1)
[2022-10-08 12:43] LABS: HEMATOCRIT 40.1 % (35.4-49); MCH 28.5 pg (25.7-33.7); MCHC 32.5 g/dl (32.0-35.9); MEAN CELL VOLUME 87.5 fl (80-96); PLATELET COUNT 219 10^3/uL (134-434); RBC 4.58 M/mm3 (4.00-5.60); RDW 14.1 % (11.9-15.9)
[2022-10-08] MEDS: NICOTINE POLACRILEX 2 MG GUM BUC PRN ×3 (12:57→23:03)
[2022-10-08] MEDS: METHOCARBAMOL 500 MG TABLET PO PRN (12:57)
[2022-10-08] MEDS: diazePAM 5 MG TABLET PO SCH ×2 (17:23→23:02)
[2022-10-08] MEDS: THIAMINE HCL 100 MG TABLET (FP) PO SCH (23:02)
[2022-10-08] MEDS: SUVOREXANT 15 MG TABLET PO PRN (23:03)
[2022-10-09] MEDS ORDERED: LORazepam 1 MG TABLET PO SCH (05:00)
[2022-10-09] MEDS: METHOCARBAMOL 500 MG TABLET PO PRN ×3 (06:09→19:38)
[2022-10-09] MEDS: diazePAM 5 MG TABLET PO SCH ×3 (06:09→22:19)
[2022-10-09] MEDS: NICOTINE POLACRILEX 2 MG GUM BUC PRN ×5 (06:12→19:40)
[2022-10-09] MEDS: NICOTINE 14 MG/24 HOURS TOPICAL PATCH TD SCH (10:15)
[2022-10-09] MEDS: PRENATAL VITAMINS W/ FOLIC ACID TABLET (FP) PO SCH (10:15)
[2022-10-09] MEDS: diazePAM 5 MG TABLET PO PRN ×2 (10:16→17:12)
[2022-10-09] MEDS: methaDONE HCL 40 MG DISPERSABLE TABLET PO SCH (10:16)
[2022-10-09] MEDS ORDERED: hydrOXYzine PAMOATE 25 MG CAPSULE (FP) PO ONE (12:03)
[2022-10-09] MEDS: hydrOXYzine PAMOATE 50 MG CAPSULE (FP) PO PRN ×2 (17:11→22:20)
[2022-10-09] MEDS: SUVOREXANT 15 MG TABLET PO PRN (22:19)
[2022-10-09] MEDS: THIAMINE HCL 100 MG TABLET (FP) PO SCH (22:19)
[2022-10-10] MEDS ORDERED: LORazepam 0.5 MG TABLET PO PRN
[2022-10-10] MEDS: METHOCARBAMOL 500 MG TABLET PO PRN ×4 (01:49→22:29)
[2022-10-10] MEDS: diazePAM 5 MG TABLET PO PRN ×3 (01:50→13:56)
[2022-10-10] MEDS: NICOTINE POLACRILEX 2 MG GUM BUC PRN ×5 (01:50→22:30)
[2022-10-10] MEDS ORDERED: LORazepam 0.5 MG TABLET PO SCH (05:00)
[2022-10-10] MEDS: diazePAM 5 MG TABLET PO SCH ×2 (06:20→17:10)
[2022-10-10] MEDS: PRENATAL VITAMINS W/ FOLIC ACID TABLET (FP) PO SCH (10:27)
[2022-10-10] MEDS: methaDONE HCL 40 MG DISPERSABLE TABLET PO SCH (10:27)
[2022-10-10] MEDS: NICOTINE 14 MG/24 HOURS TOPICAL PATCH TD SCH (10:32)
[2022-10-10] MEDS: hydrOXYzine PAMOATE 50 MG CAPSULE (FP) PO PRN ×3 (12:25→22:28)
[2022-10-10] MEDS: SUVOREXANT 15 MG TABLET PO PRN (22:27)
[2022-10-10] MEDS: THIAMINE HCL 100 MG TABLET (FP) PO SCH (22:27)
[2022-10-11] MEDS ORDERED: LORazepam 0.5 MG TABLET PO ONE (05:00)
[2022-10-11] MEDS: hydrOXYzine PAMOATE 50 MG CAPSULE (FP) PO PRN (05:16)
[2022-10-11] MEDS ORDERED: diazePAM 5 MG TABLET PO ONE (06:00)
[2022-10-11 06:12] VITALS: RESP 18
[2022-10-11 09:37] VITALS: BP 115/71; PULSE 78; TEMP 97.7
[2022-10-11] MEDS: NICOTINE 14 MG/24 HOURS TOPICAL PATCH TD SCH (10:40)
[2022-10-11] MEDS: METHOCARBAMOL 500 MG TABLET PO PRN (10:40)
[2022-10-11] MEDS: PRENATAL VITAMINS W/ FOLIC ACID TABLET (FP) PO SCH (10:42)
[2022-10-11] MEDS: methaDONE HCL 40 MG DISPERSABLE TABLET PO SCH (10:42)
[2022-10-11] MEDS ORDERED: hydrOXYzine PAMOATE 25 MG CAPSULE (FP) PO ONE (11:00)
[2022-10-11] MEDS: NICOTINE POLACRILEX 2 MG GUM BUC PRN (12:14)
== END 2022-10-11 12:23 | disposition other institution (70) | DRG 773 ==
LOC: YASAS 18:25 → Y6N 20:30
PROVIDERS: ADMIT Allergy & Immunology; ATTEND Surgery
PROC: HZ2ZZZZ Detoxification Services for Substance Abuse Treatment (ICD-10-PCS; principal; 2022-10-07)
DX: F10.230 Alcohol dependence with withdrawal, uncomplicated (principal); F13.230 Sedative, hypnotic or anxiolytic dependence with withdrawal, uncomplicated; F11.20 Opioid dependence, uncomplicated; F14.20 Cocaine dependence, uncomplicated; F17.210 Nicotine dependence, cigarettes, uncomplicated; F19.280 Other psychoactive substance dependence with psychoactive substance-induced anxiety disorder; F19.282 Other psychoactive substance dependence with psychoactive substance-induced sleep disorder; F19.24 Other psychoactive substance dependence with psychoactive substance-induced mood disorder; K21.9 Gastro-esophageal reflux disease without esophagitis; M54.50 Low back pain, unspecified; G89.29 Other chronic pain; M51.16 Intervertebral disc disorders with radiculopathy, lumbar region; Z86.69 Personal history of other diseases of the nervous system and sense organs; Z86.16 Personal history of COVID-19; Z86.718 Personal history of other venous thrombosis and embolism; Z59.01 Sheltered homelessness
CPT/HCPCS: 36415; 80053; 85027; 86780; 87811; 93005; 93010; C9803-CS; U0003; U0005

== ENCOUNTER 2022-10-11 12:29 | Inpatient (IN) | payer OTHER ==
[2022-10-11] MEDS ORDERED: hydrOXYzine PAMOATE 25 MG CAPSULE (FP) PO PRN (15:49)
[2022-10-11] MEDS ORDERED: MAG HYDROX/AL HYDROX/SIMETH 30 ML UNIT-DOSE CUP PO PRN (15:49)
[2022-10-11] MEDS ORDERED: MAGNESIUM HYDROX 2400MG/30ML ORAL SUSPENSION 30 ML CUP PO PRN (15:49)
[2022-10-11] MEDS ORDERED: POLYETHYLENE GLYCOL (HEALTHYLAX) 3350 17 GM PACKET PO PRN (15:49)
[2022-10-11] MEDS ORDERED: LOPERAMIDE HCL 2 MG CAPSULE PO PRN (15:49)
[2022-10-11] MEDS ORDERED: guaiFENesin 200 MG/10 ML 10 ML UNIT-DOSE CUPS PO PRN (15:49)
[2022-10-11] MEDS ORDERED: P-EPHED 60MG/TRIPROLIDI 2.5MG TABLET PO PRN (15:49)
[2022-10-11] MEDS ORDERED: BENZOCAINE/MENTHOL (CHLORASEPTIC ) LOZENGE MM PRN (15:49)
[2022-10-11] MEDS: NICOTINE 7 MG/24 HOURS TOPICAL PATCH TD PRN (16:08)
[2022-10-11] MEDS: THIAMINE HCL 100 MG TABLET (FP) PO SCH (21:06)
[2022-10-11] MEDS: MELATONIN 5 MG TABLETS PO SCH (21:06)
[2022-10-11] MEDS: SUVOREXANT 15 MG TABLET PO PRN (21:07)
[2022-10-12] MEDS: hydrOXYzine PAMOATE 25 MG CAPSULE (FP) PO PRN ×2 (02:18→10:37)
[2022-10-12] MEDS ORDERED: methaDONE HCL 10 MG TABLET PO SCH (06:00)
[2022-10-12] MEDS: IBUPROFEN 400 MG TABLET (FP) PO PRN ×2 (09:06→19:20)
[2022-10-12] MEDS: PRENATAL VITAMINS W/ FOLIC ACID TABLET (FP) PO SCH (09:06)
[2022-10-12] MEDS: methaDONE HCL 40 MG DISPERSABLE TABLET PO SCH (09:06)
[2022-10-12] MEDS: NICOTINE 7 MG/24 HOURS TOPICAL PATCH TD PRN (10:37)
[2022-10-12] MEDS ORDERED: FLU VACC QS2022-23(6MOS UP)/PF 60 MCG/0.5 ML SYRINGE IM ONE (12:00)
[2022-10-12] MEDS ORDERED: PNEUMOC 20-VAL CONJ-DIP CRM/PF 0.5 ML SYRINGE IM ONE (12:00)
[2022-10-12 12:06] LABS: HIV INTERPRETATION NEGATIVE (NEGATIVE)
[2022-10-12] MEDS: NICOTINE POLACRILEX 4 MG GUM BUC PRN ×3 (13:15→19:20)
[2022-10-12] MEDS: METHOCARBAMOL 500 MG TABLET PO PRN ×2 (17:01→22:46)
[2022-10-12] MEDS: ACETAMINOPHEN 325 MG TABLET (FP) PO PRN (21:08)
[2022-10-12] MEDS: MELATONIN 5 MG TABLETS PO SCH (21:08)
[2022-10-12] MEDS: THIAMINE HCL 100 MG TABLET (FP) PO SCH (21:09)
[2022-10-12] MEDS: SUVOREXANT 15 MG TABLET PO PRN (21:10)
[2022-10-13] MEDS: hydrOXYzine PAMOATE 25 MG CAPSULE (FP) PO PRN ×2 (06:10→21:11)
[2022-10-13] MEDS: IBUPROFEN 400 MG TABLET (FP) PO PRN (06:10)
[2022-10-13] MEDS: METHOCARBAMOL 500 MG TABLET PO PRN ×3 (06:10→21:11)
[2022-10-13] MEDS: PRENATAL VITAMINS W/ FOLIC ACID TABLET (FP) PO SCH (09:31)
[2022-10-13] MEDS: NICOTINE POLACRILEX 4 MG GUM BUC PRN ×4 (09:31→21:12)
[2022-10-13] MEDS: ACETAMINOPHEN 325 MG TABLET (FP) PO PRN (09:32)
[2022-10-13] MEDS: methaDONE HCL 40 MG DISPERSABLE TABLET PO SCH (09:33)
[2022-10-13] MEDS: THIAMINE HCL 100 MG TABLET (FP) PO SCH (21:11)
[2022-10-13] MEDS: MELATONIN 5 MG TABLETS PO SCH (21:11)
[2022-10-13] MEDS: SUVOREXANT 15 MG TABLET PO PRN (21:13)
[2022-10-14] MEDS: METHOCARBAMOL 500 MG TABLET PO PRN ×3 (05:47→21:04)
[2022-10-14] MEDS: hydrOXYzine PAMOATE 25 MG CAPSULE (FP) PO PRN ×3 (05:48→22:01)
[2022-10-14] MEDS: IBUPROFEN 400 MG TABLET (FP) PO PRN (09:11)
[2022-10-14] MEDS: PRENATAL VITAMINS W/ FOLIC ACID TABLET (FP) PO SCH (09:12)
[2022-10-14] MEDS: NICOTINE POLACRILEX 4 MG GUM BUC PRN ×2 (10:09→12:30)
[2022-10-14] MEDS: methaDONE HCL 40 MG DISPERSABLE TABLET PO SCH (10:09)
[2022-10-14] MEDS: NICOTINE 10 MG CARTRIDGE (INHALER) IH PRN (13:45)
[2022-10-14] MEDS: ACETAMINOPHEN 325 MG TABLET (FP) PO PRN (17:28)
[2022-10-14] MEDS: THIAMINE HCL 100 MG TABLET (FP) PO SCH (21:04)
[2022-10-14] MEDS: MELATONIN 5 MG TABLETS PO SCH (21:04)
[2022-10-14] MEDS: SUVOREXANT 15 MG TABLET PO PRN (21:05)
[2022-10-15] MEDS: hydrOXYzine PAMOATE 25 MG CAPSULE (FP) PO PRN ×3 (06:01→21:34)
[2022-10-15] MEDS: METHOCARBAMOL 500 MG TABLET PO PRN ×3 (06:01→21:34)
[2022-10-15] MEDS: NICOTINE POLACRILEX 4 MG GUM BUC PRN ×3 (06:04→21:35)
[2022-10-15] MEDS: methaDONE HCL 40 MG DISPERSABLE TABLET PO SCH (09:45)
[2022-10-15] MEDS: PRENATAL VITAMINS W/ FOLIC ACID TABLET (FP) PO SCH (09:45)
[2022-10-15] MEDS: NICOTINE 10 MG CARTRIDGE (INHALER) IH PRN ×2 (12:59→21:35)
[2022-10-15] MEDS: SUVOREXANT 15 MG TABLET PO PRN (21:34)
[2022-10-15] MEDS: MELATONIN 5 MG TABLETS PO SCH (21:34)
[2022-10-15] MEDS: THIAMINE HCL 100 MG TABLET (FP) PO SCH (21:34)
[2022-10-16] MEDS: METHOCARBAMOL 500 MG TABLET PO PRN ×3 (06:15→21:43)
[2022-10-16] MEDS: hydrOXYzine PAMOATE 25 MG CAPSULE (FP) PO PRN ×3 (06:15→21:44)
[2022-10-16] MEDS: methaDONE HCL 40 MG DISPERSABLE TABLET PO SCH (10:10)
[2022-10-16] MEDS: PRENATAL VITAMINS W/ FOLIC ACID TABLET (FP) PO SCH (10:10)
[2022-10-16] MEDS: NICOTINE 10 MG CARTRIDGE (INHALER) IH PRN (10:15)
[2022-10-16] MEDS: NICOTINE POLACRILEX 4 MG GUM BUC PRN ×3 (10:15→20:15)
[2022-10-16] MEDS: SUVOREXANT 15 MG TABLET PO PRN (21:44)
[2022-10-16] MEDS: THIAMINE HCL 100 MG TABLET (FP) PO SCH (21:44)
[2022-10-17] MEDS: hydrOXYzine PAMOATE 25 MG CAPSULE (FP) PO PRN ×3 (05:57→21:17)
[2022-10-17] MEDS: METHOCARBAMOL 500 MG TABLET PO PRN ×3 (05:57→21:17)
[2022-10-17 06:35] VITALS: RESP 18
[2022-10-17] MEDS: ACETAMINOPHEN 325 MG TABLET (FP) PO PRN (08:38)
[2022-10-17] MEDS: PRENATAL VITAMINS W/ FOLIC ACID TABLET (FP) PO SCH (10:06)
[2022-10-17] MEDS: methaDONE HCL 40 MG DISPERSABLE TABLET PO SCH (10:06)
[2022-10-17] MEDS: NICOTINE 10 MG CARTRIDGE (INHALER) IH PRN (12:00)
[2022-10-17] MEDS: NICOTINE POLACRILEX 4 MG GUM BUC PRN ×2 (12:00→21:18)
[2022-10-17] MEDS: THIAMINE HCL 100 MG TABLET (FP) PO SCH (21:17)
[2022-10-17] MEDS: SUVOREXANT 15 MG TABLET PO PRN (21:17)
[2022-10-18] MEDS: NICOTINE POLACRILEX 4 MG GUM BUC PRN ×2 (06:13→08:59)
[2022-10-18] MEDS: hydrOXYzine PAMOATE 25 MG CAPSULE (FP) PO PRN (06:14)
[2022-10-18] MEDS: METHOCARBAMOL 500 MG TABLET PO PRN (06:15)
[2022-10-18 06:46] VITALS: BP 111/67; PULSE 80; TEMP 97.8
[2022-10-18] MEDS: methaDONE HCL 40 MG DISPERSABLE TABLET PO SCH (08:58)
[2022-10-18] MEDS: NICOTINE 10 MG CARTRIDGE (INHALER) IH PRN (08:59)
[2022-10-18] MEDS: PRENATAL VITAMINS W/ FOLIC ACID TABLET (FP) PO SCH (08:59)
== END 2022-10-18 09:12 | disposition home or self-care (01) | DRG 772 ==
LOC: YASAS 12:29 → Y3W 12:32
PROVIDERS: ADMIT Allergy & Immunology; ATTEND Psychiatry & Neurology Pain Medicine
PROC: HZ42ZZZ Group Counseling for Substance Abuse Treatment, Cognitive-Behavioral (ICD-10-PCS; principal; 2022-10-11)
DX: F11.20 Opioid dependence, uncomplicated (principal); F10.20 Alcohol dependence, uncomplicated; F13.20 Sedative, hypnotic or anxiolytic dependence, uncomplicated; F14.20 Cocaine dependence, uncomplicated; F17.210 Nicotine dependence, cigarettes, uncomplicated; F19.280 Other psychoactive substance dependence with psychoactive substance-induced anxiety disorder; F19.282 Other psychoactive substance dependence with psychoactive substance-induced sleep disorder; F41.9 Anxiety disorder, unspecified; K21.9 Gastro-esophageal reflux disease without esophagitis; M54.50 Low back pain, unspecified; G89.29 Other chronic pain; Z20.1 Contact with and (suspected) exposure to tuberculosis; Z86.69 Personal history of other diseases of the nervous system and sense organs; Z59.01 Sheltered homelessness
CPT/HCPCS: 36415; 87389; 90677; G0008; Q2036

== ENCOUNTER 2022-11-04 18:17 | Inpatient (IN) | payer OTHER ==
[2022-11-04 19:34] VITALS: BMI 24.0
[2022-11-04] MEDS ORDERED: MAG HYDROX/AL HYDROX/SIMETH 30 ML UNIT-DOSE CUP PO PRN (20:21)
[2022-11-04] MEDS ORDERED: DICYCLOMINE HCL 10 MG CAPSULE PO PRN (20:21)
[2022-11-04] MEDS ORDERED: IBUPROFEN 600 MG TABLET (FP) PO PRN (20:21)
[2022-11-04] MEDS ORDERED: BENZOCAINE/MENTHOL (CHLORASEPTIC ) LOZENGE MM PRN (20:21)
[2022-11-04] MEDS ORDERED: POLYETHYLENE GLYCOL (HEALTHYLAX) 3350 17 GM PACKET PO PRN (20:21)
[2022-11-04] MEDS ORDERED: IBUPROFEN 400 MG TABLET (FP) PO PRN (20:21)
[2022-11-04] MEDS ORDERED: ONDANSETRON *ODT* 4 MG TABLET SL PRN (20:21)
[2022-11-04] MEDS ORDERED: NALOXONE HCL (KLOXXADO) 8 MG SPRAY NS PRN (20:21)
[2022-11-04] MEDS ORDERED: LOPERAMIDE HCL 2 MG CAPSULE PO PRN (20:21)
[2022-11-04] MEDS ORDERED: BISMUTH SUBSALICYLATE 524 MG/30 ML PO PRN (20:21)
[2022-11-04] MEDS ORDERED: ACETAMINOPHEN 325 MG TABLET (FP) PO PRN ×2 (20:21)
[2022-11-04] MEDS ORDERED: guaiFENesin 200 MG/10 ML 10 ML UNIT-DOSE CUPS PO PRN (20:21)
[2022-11-04] MEDS ORDERED: P-EPHED 60MG/TRIPROLIDI 2.5MG TABLET PO PRN (20:21)
[2022-11-04] MEDS ORDERED: MAGNESIUM HYDROX 2400MG/30ML ORAL SUSPENSION 30 ML CUP PO PRN (20:21)
[2022-11-04] MEDS ORDERED: NALOXONE HCL 0.4 MG/ML VIAL IM PRN (20:21)
[2022-11-04] MEDS ORDERED: MELATONIN 5 MG TABLETS PO SCH (22:00)
[2022-11-04] MEDS: hydrOXYzine PAMOATE 25 MG CAPSULE (FP) PO PRN (22:34)
[2022-11-04] MEDS: levETIRAcetam 500 MG TABLET (FP) PO SCH (22:34)
[2022-11-04] MEDS: THIAMINE HCL 100 MG TABLET (FP) PO SCH (22:34)
[2022-11-04] MEDS: METHOCARBAMOL 500 MG TABLET PO PRN (22:35)
[2022-11-04] MEDS: diazePAM 5 MG TABLET PO PRN (22:37)
[2022-11-05] MEDS: hydrOXYzine PAMOATE 25 MG CAPSULE (FP) PO PRN ×2 (05:18→19:11)
[2022-11-05] MEDS: NICOTINE POLACRILEX 2 MG GUM BUC PRN ×5 (05:18→22:32)
[2022-11-05] MEDS: METHOCARBAMOL 500 MG TABLET PO PRN ×2 (05:18→17:14)
[2022-11-05] MEDS: diazePAM 5 MG TABLET PO PRN ×3 (05:27→17:14)
[2022-11-05] MEDS: levETIRAcetam 500 MG TABLET (FP) PO SCH ×2 (10:30→22:29)
[2022-11-05] MEDS: SULFAMETHOXAZOLE/TRIMETHOPRIM 800MG/160MG D.S. TABLET PO SCH ×2 (10:30→22:30)
[2022-11-05] MEDS: ASPIRIN 81 MG CHEWABLE TABLETS PO SCH (10:31)
[2022-11-05] MEDS: PRENATAL VITAMINS W/ FOLIC ACID TABLET (FP) PO SCH (10:31)
[2022-11-05] MEDS: methaDONE HCL 40 MG DISPERSABLE TABLET PO SCH (11:04)
[2022-11-05] MEDS: SUVOREXANT 5 MG TABLET PO PRN (22:29)
[2022-11-05] MEDS: THIAMINE HCL 100 MG TABLET (FP) PO SCH (22:30)
[2022-11-06] MEDS: diazePAM 5 MG TABLET PO PRN ×5 (01:30→20:30)
[2022-11-06] MEDS: METHOCARBAMOL 500 MG TABLET PO PRN ×4 (01:30→22:13)
[2022-11-06] MEDS: methaDONE HCL 40 MG DISPERSABLE TABLET PO SCH (05:20)
[2022-11-06] MEDS: hydrOXYzine PAMOATE 25 MG CAPSULE (FP) PO PRN ×2 (05:25→15:35)
[2022-11-06] MEDS: ASPIRIN 81 MG CHEWABLE TABLETS PO SCH (10:21)
[2022-11-06] MEDS: SULFAMETHOXAZOLE/TRIMETHOPRIM 800MG/160MG D.S. TABLET PO SCH ×2 (10:22→22:13)
[2022-11-06] MEDS: PRENATAL VITAMINS W/ FOLIC ACID TABLET (FP) PO SCH (10:22)
[2022-11-06] MEDS: levETIRAcetam 500 MG TABLET (FP) PO SCH ×2 (10:22→22:13)
[2022-11-06] MEDS: NICOTINE 10 MG CARTRIDGE (INHALER) IH PRN (10:25)
[2022-11-06] MEDS: NICOTINE POLACRILEX 4 MG GUM BUC PRN ×2 (10:26→17:07)
[2022-11-06] MEDS: THIAMINE HCL 100 MG TABLET (FP) PO SCH (22:13)
[2022-11-06] MEDS: SUVOREXANT 5 MG TABLET PO PRN (22:13)
[2022-11-07] MEDS: methaDONE HCL 40 MG DISPERSABLE TABLET PO SCH (05:18)
[2022-11-07] MEDS: hydrOXYzine PAMOATE 25 MG CAPSULE (FP) PO PRN ×2 (05:20→12:09)
[2022-11-07] MEDS: diazePAM 5 MG TABLET PO PRN ×2 (06:44→10:59)
[2022-11-07] MEDS: METHOCARBAMOL 500 MG TABLET PO PRN ×2 (06:44→12:09)
[2022-11-07] MEDS: PRENATAL VITAMINS W/ FOLIC ACID TABLET (FP) PO SCH (09:52)
[2022-11-07] MEDS: SULFAMETHOXAZOLE/TRIMETHOPRIM 800MG/160MG D.S. TABLET PO SCH (09:52)
[2022-11-07] MEDS: ASPIRIN 81 MG CHEWABLE TABLETS PO SCH (09:52)
[2022-11-07] MEDS: levETIRAcetam 500 MG TABLET (FP) PO SCH (09:52)
[2022-11-07 10:01] VITALS: BP 109/67; PULSE 89; RESP 18; TEMP 97.4
[2022-11-07] MEDS: NICOTINE POLACRILEX 4 MG GUM BUC PRN (11:00)
[2022-11-07] MEDS: NICOTINE 10 MG CARTRIDGE (INHALER) IH PRN (11:58)
== END 2022-11-07 12:23 | disposition other institution (70) | DRG 773 ==
LOC: YASAS 18:17 → Y6N 21:14
PROVIDERS: ADMIT Allergy & Immunology; ATTEND Surgery
PROC: HZ2ZZZZ Detoxification Services for Substance Abuse Treatment (ICD-10-PCS; principal; 2022-11-04)
DX: F10.230 Alcohol dependence with withdrawal, uncomplicated (principal); F11.20 Opioid dependence, uncomplicated; F14.20 Cocaine dependence, uncomplicated; F13.20 Sedative, hypnotic or anxiolytic dependence, uncomplicated; F17.210 Nicotine dependence, cigarettes, uncomplicated; F19.280 Other psychoactive substance dependence with psychoactive substance-induced anxiety disorder; F19.24 Other psychoactive substance dependence with psychoactive substance-induced mood disorder; F41.9 Anxiety disorder, unspecified; F43.10 Post-traumatic stress disorder, unspecified; K21.9 Gastro-esophageal reflux disease without esophagitis; L03.90 Cellulitis, unspecified; M54.50 Low back pain, unspecified; G89.29 Other chronic pain; Z20.1 Contact with and (suspected) exposure to tuberculosis; Z86.718 Personal history of other venous thrombosis and embolism; Z79.82 Long term (current) use of aspirin; Z86.69 Personal history of other diseases of the nervous system and sense organs; Z86.16 Personal history of COVID-19; Z59.00 Homelessness unspecified; Z56.0 Unemployment, unspecified
CPT/HCPCS: C9803-CS; U0003; U0005

== ENCOUNTER 2023-01-31 22:48 | Inpatient (IN) | payer OTHER ==
[2023-01-31 23:31] VITALS: BMI 26.9
[2023-02-01] MEDS ORDERED: BENZOCAINE/MENTHOL (CHLORASEPTIC ) LOZENGE MM PRN (01:00)
[2023-02-01] MEDS ORDERED: guaiFENesin 600 MG TABLET.ER (FP) PO PRN (01:00)
[2023-02-01] MEDS ORDERED: MAGNESIUM HYDROX 2400MG/30ML ORAL SUSPENSION 30 ML CUP PO PRN (01:00)
[2023-02-01] MEDS ORDERED: BENZONATATE 200 MG CAPSULE PO PRN (01:00)
[2023-02-01] MEDS ORDERED: NALOXONE HCL 0.4 MG/ML VIAL IM PRN (01:00)
[2023-02-01] MEDS ORDERED: DICYCLOMINE HCL 10 MG CAPSULE PO PRN (01:00)
[2023-02-01] MEDS ORDERED: POLYETHYLENE GLYCOL (HEALTHYLAX) 3350 17 GM PACKET PO PRN (01:00)
[2023-02-01] MEDS ORDERED: IBUPROFEN 400 MG TABLET (FP) PO PRN (01:00)
[2023-02-01] MEDS ORDERED: ONDANSETRON *ODT* 4 MG TABLET SL PRN (01:00)
[2023-02-01] MEDS ORDERED: NICOTINE 10 MG CARTRIDGE (INHALER) IH PRN (01:00)
[2023-02-01] MEDS ORDERED: BISMUTH SUBSALICYLATE 524 MG/30 ML PO PRN (01:00)
[2023-02-01] MEDS ORDERED: MAG HYDROX/AL HYDROX/SIMETH 30 ML UNIT-DOSE CUP PO PRN (01:00)
[2023-02-01] MEDS ORDERED: NALOXONE HCL (KLOXXADO) 8 MG SPRAY NS PRN (01:00)
[2023-02-01] MEDS ORDERED: ACETAMINOPHEN 325 MG TABLET (FP) PO PRN (01:00)
[2023-02-01] MEDS ORDERED: IBUPROFEN 600 MG TABLET (FP) PO PRN (01:00)
[2023-02-01] MEDS ORDERED: LOPERAMIDE HCL 2 MG CAPSULE PO PRN (01:00)
[2023-02-01] MEDS ORDERED: diazePAM 5 MG TABLET ONE (06:39)
[2023-02-01] MEDS: diazePAM 5 MG TABLET PO SCH ×4 (06:42→22:34)
[2023-02-01] MEDS ORDERED: methaDONE HCL 10 MG TABLET PO ONE (09:17)
[2023-02-01] MEDS: levETIRAcetam 500 MG TABLET (FP) PO SCH ×2 (10:08→22:34)
[2023-02-01] MEDS: PRENATAL VITAMINS W/ FOLIC ACID TABLET (FP) PO SCH (10:09)
[2023-02-01] MEDS: NICOTINE 14 MG/24 HOURS TOPICAL PATCH TD SCH (10:12)
[2023-02-01 11:17] LABS: HEMOGLOBIN 10.4 GM/dL (11.7-16.9); MCH 28.1 pg (25.7-33.7); MCHC 33.7 g/dl (32.0-35.9); MEAN CELL VOLUME 83.6 fl (80-96); MEAN PLT VOLUME 7.3 fl (7.5-11.1); PLATELET COUNT 154 10^3/uL (134-434); RBC 3.71 M/mm3 (4.00-5.60); RDW 15.6 % (11.9-15.9); WHITE BLOOD COUNT 3.5 K/mm3 (4.0-10.0)
[2023-02-01 11:26] LABS: CALCIUM 8.4 mg/dL (8.5-10.1)
[2023-02-01 11:27] LABS: ALBUMIN 3.1 g/dl (3.4-5.0)
[2023-02-01 11:30] LABS: CREATININE 0.8 mg/dL (0.55-1.3)
[2023-02-01 11:31] LABS: BILIRUBIN,TOTAL 0.4 mg/dL (0.2-1)
[2023-02-01 11:32] LABS: TOT PROT 5.8 g/dl (6.4-8.2)
[2023-02-01] MEDS: FLUoxetine HCL 20 MG CAPSULE PO SCH (11:59)
[2023-02-01] MEDS ORDERED: NICOTINE POLACRILEX 4 MG GUM BUC PRN (13:52)
[2023-02-01] MEDS ORDERED: METHOCARBAMOL 500 MG TABLET PO ONE (15:59)
[2023-02-01] MEDS: diazePAM 5 MG TABLET PO PRN (19:53)
[2023-02-01] MEDS ORDERED: SUVOREXANT 10 MG TABLET PO PRN (22:00)
[2023-02-01] MEDS ORDERED: MELATONIN 5 MG TABLETS PO SCH (22:00)
[2023-02-01] MEDS: THIAMINE HCL 100 MG TABLET (FP) PO SCH (22:34)
[2023-02-02] MEDS: diazePAM 5 MG TABLET PO PRN ×4 (00:53→17:33)
[2023-02-02] MEDS: diazePAM 5 MG TABLET PO SCH ×3 (05:32→22:24)
[2023-02-02] MEDS ORDERED: methaDONE HCL 10 MG TABLET PO SCH (06:00)
[2023-02-02] MEDS: PRENATAL VITAMINS W/ FOLIC ACID TABLET (FP) PO SCH (10:27)
[2023-02-02] MEDS: ASPIRIN 81 MG CHEWABLE TABLETS PO SCH (10:28)
[2023-02-02] MEDS: FLUoxetine HCL 20 MG CAPSULE PO SCH (10:28)
[2023-02-02] MEDS: levETIRAcetam 500 MG TABLET (FP) PO SCH ×2 (10:28→22:24)
[2023-02-02] MEDS: NICOTINE 14 MG/24 HOURS TOPICAL PATCH TD SCH (10:29)
[2023-02-02] MEDS ORDERED: METHOCARBAMOL 500 MG TABLET PO ONE (20:00)
[2023-02-02] MEDS: THIAMINE HCL 100 MG TABLET (FP) PO SCH (22:24)
[2023-02-02] MEDS: SUVOREXANT 15 MG TABLET PO PRN (22:30)
[2023-02-03] MEDS: diazePAM 5 MG TABLET PO PRN ×4 (01:36→20:26)
[2023-02-03] MEDS: diazePAM 5 MG TABLET PO SCH ×2 (05:16→17:45)
[2023-02-03] MEDS: levETIRAcetam 500 MG TABLET (FP) PO SCH ×2 (10:27→21:21)
[2023-02-03] MEDS: FLUoxetine HCL 20 MG CAPSULE PO SCH (10:27)
[2023-02-03] MEDS: PRENATAL VITAMINS W/ FOLIC ACID TABLET (FP) PO SCH (10:27)
[2023-02-03] MEDS: ASPIRIN 81 MG CHEWABLE TABLETS PO SCH (10:27)
[2023-02-03] MEDS: NICOTINE 14 MG/24 HOURS TOPICAL PATCH TD SCH (10:28)
[2023-02-03] MEDS: THIAMINE HCL 100 MG TABLET (FP) PO SCH (21:21)
[2023-02-03] MEDS: SUVOREXANT 15 MG TABLET PO PRN (21:23)
[2023-02-04] MEDS ORDERED: METHOCARBAMOL 500 MG TABLET PO ONE (02:40)
[2023-02-04] MEDS ORDERED: diazePAM 5 MG TABLET PO ONE (06:00)
[2023-02-04 10:10] VITALS: PULSE 70; RESP 16
[2023-02-04] MEDS: PRENATAL VITAMINS W/ FOLIC ACID TABLET (FP) PO SCH (10:13)
[2023-02-04] MEDS: NICOTINE 14 MG/24 HOURS TOPICAL PATCH TD SCH (10:14)
[2023-02-04] MEDS: levETIRAcetam 500 MG TABLET (FP) PO SCH (10:14)
[2023-02-04] MEDS: FLUoxetine HCL 20 MG CAPSULE PO SCH (10:14)
[2023-02-04] MEDS: ASPIRIN 81 MG CHEWABLE TABLETS PO SCH (10:14)
[2023-02-04 13:43] VITALS: BP 112/70; TEMP 97.5
== END 2023-02-04 14:24 | disposition other institution (70) | DRG 773 ==
LOC: YASAS 22:48 → Y6N 02-01 06:45
PROVIDERS: ADMIT Allergy & Immunology; ATTEND Surgery
PROC: HZ2ZZZZ Detoxification Services for Substance Abuse Treatment (ICD-10-PCS; principal; 2023-02-01)
DX: F10.230 Alcohol dependence with withdrawal, uncomplicated (principal); F13.230 Sedative, hypnotic or anxiolytic dependence with withdrawal, uncomplicated; F11.20 Opioid dependence, uncomplicated; F17.210 Nicotine dependence, cigarettes, uncomplicated; F19.280 Other psychoactive substance dependence with psychoactive substance-induced anxiety disorder; F19.282 Other psychoactive substance dependence with psychoactive substance-induced sleep disorder; F32.A Depression, unspecified; G40.909 Epilepsy, unspecified, not intractable, without status epilepticus; K21.9 Gastro-esophageal reflux disease without esophagitis; R76.11 Nonspecific reaction to tuberculin skin test without active tuberculosis; Z59.01 Sheltered homelessness; Z86.718 Personal history of other venous thrombosis and embolism; Z79.82 Long term (current) use of aspirin
CPT/HCPCS: 36415; 80053; 85027; 86780; C9803-CS; U0003; U0005

== ENCOUNTER 2023-02-04 14:07 | Inpatient (IN) | payer OTHER ==
[2023-02-04] MEDS ORDERED: BENZOCAINE/MENTHOL (CHLORASEPTIC ) LOZENGE MM PRN (14:21)
[2023-02-04] MEDS ORDERED: MAG HYDROX/AL HYDROX/SIMETH 30 ML UNIT-DOSE CUP PO PRN (14:21)
[2023-02-04] MEDS ORDERED: NICOTINE 10 MG CARTRIDGE (INHALER) IH PRN (14:21)
[2023-02-04] MEDS ORDERED: LOPERAMIDE HCL 2 MG CAPSULE PO PRN (14:21)
[2023-02-04] MEDS ORDERED: NALOXONE HCL 0.4 MG/ML VIAL IVPUSH PRN (14:21)
[2023-02-04] MEDS ORDERED: IBUPROFEN 400 MG TABLET (FP) PO PRN (14:21)
[2023-02-04] MEDS ORDERED: NALOXONE HCL (KLOXXADO) 8 MG SPRAY NS PRN (14:21)
[2023-02-04] MEDS ORDERED: MAGNESIUM HYDROX 2400MG/30ML ORAL SUSPENSION 30 ML CUP PO PRN (14:21)
[2023-02-04] MEDS ORDERED: POLYETHYLENE GLYCOL (HEALTHYLAX) 3350 17 GM PACKET PO PRN (14:21)
[2023-02-04] MEDS ORDERED: guaiFENesin 600 MG TABLET.ER (FP) PO PRN (14:21)
[2023-02-04] MEDS ORDERED: ACETAMINOPHEN 325 MG TABLET (FP) PO PRN (14:21)
[2023-02-04] MEDS ORDERED: BENZONATATE 200 MG CAPSULE PO PRN (14:21)
[2023-02-04] MEDS ORDERED: NICOTINE POLACRILEX 2 MG GUM BUC PRN (14:25)
[2023-02-04] MEDS: METHOCARBAMOL 500 MG TABLET PO PRN ×2 (15:19→21:39)
[2023-02-04] MEDS: THIAMINE HCL 100 MG TABLET (FP) PO SCH (21:39)
[2023-02-04] MEDS: hydrOXYzine PAMOATE 25 MG CAPSULE (FP) PO PRN (21:39)
[2023-02-04] MEDS: SUVOREXANT 15 MG TABLET PO PRN (21:39)
[2023-02-04] MEDS: levETIRAcetam 500 MG TABLET (FP) PO SCH (21:39)
[2023-02-04] MEDS: MELATONIN 5 MG TABLETS PO SCH (21:40)
[2023-02-05] MEDS ORDERED: methaDONE HCL 10 MG TABLET PO SCH (06:00)
[2023-02-05] MEDS: hydrOXYzine PAMOATE 25 MG CAPSULE (FP) PO PRN ×3 (06:31→21:25)
[2023-02-05] MEDS: METHOCARBAMOL 500 MG TABLET PO PRN ×3 (06:31→21:25)
[2023-02-05] MEDS ORDERED: NICOTINE 14 MG/24 HOURS TOPICAL PATCH TD PRN ×2 (08:26→13:28)
[2023-02-05] MEDS: FLUoxetine HCL 20 MG CAPSULE PO SCH (09:22)
[2023-02-05] MEDS: levETIRAcetam 500 MG TABLET (FP) PO SCH ×3 (09:23→21:25)
[2023-02-05] MEDS ORDERED: NICOTINE 14 MG/24 HOURS TOPICAL PATCH TD SCH (10:00)
[2023-02-05] MEDS ORDERED: PRENATAL VITAMINS W/ FOLIC ACID TABLET (FP) PO SCH (10:00)
[2023-02-05] MEDS ORDERED: ASPIRIN 81 MG CHEWABLE TABLETS PO SCH (10:00)
[2023-02-05] MEDS: ASPIRIN 81 MG CHEWABLE TABLETS PO SCH (14:25)
[2023-02-05] MEDS: PRENATAL VITAMINS W/ FOLIC ACID TABLET (FP) PO SCH (14:25)
[2023-02-05] MEDS: NICOTINE 21 MG/24 HOURS TOPICAL PATCH TD PRN (15:41)
[2023-02-05] MEDS: SUVOREXANT 15 MG TABLET PO PRN (21:25)
[2023-02-05] MEDS: THIAMINE HCL 100 MG TABLET (FP) PO SCH (21:25)
[2023-02-05] MEDS: MELATONIN 5 MG TABLETS PO SCH (21:25)
[2023-02-06] MEDS: levETIRAcetam 500 MG TABLET (FP) PO SCH ×2 (06:28→18:05)
[2023-02-06] MEDS: ASPIRIN 81 MG CHEWABLE TABLETS PO SCH (06:28)
[2023-02-06] MEDS: METHOCARBAMOL 500 MG TABLET PO PRN (06:29)
[2023-02-06] MEDS: hydrOXYzine PAMOATE 25 MG CAPSULE (FP) PO PRN (06:29)
[2023-02-06] MEDS: PRENATAL VITAMINS W/ FOLIC ACID TABLET (FP) PO SCH ×2 (07:38→07:42)
[2023-02-06] MEDS: NICOTINE 21 MG/24 HOURS TOPICAL PATCH TD PRN (09:30)
[2023-02-06] MEDS: FLUoxetine HCL 20 MG CAPSULE PO SCH (10:12)
[2023-02-06] MEDS ORDERED: METHOCARBAMOL 750 MG TAB PO SCH (11:03)
[2023-02-06] MEDS: hydrOXYzine PAMOATE 50 MG CAPSULE (FP) PO PRN ×2 (14:56→21:33)
[2023-02-06] MEDS: METHOCARBAMOL 750 MG TAB PO SCH (18:05)
[2023-02-06] MEDS: THIAMINE HCL 100 MG TABLET (FP) PO SCH (21:32)
[2023-02-06] MEDS: MELATONIN 5 MG TABLETS PO SCH (21:34)
[2023-02-07] MEDS: METHOCARBAMOL 750 MG TAB PO SCH ×2 (05:56→19:48)
[2023-02-07] MEDS: levETIRAcetam 500 MG TABLET (FP) PO SCH ×2 (05:56→19:48)
[2023-02-07] MEDS: ASPIRIN 81 MG CHEWABLE TABLETS PO SCH (05:56)
[2023-02-07] MEDS: FLUoxetine HCL 20 MG CAPSULE PO SCH (05:56)
[2023-02-07] MEDS ORDERED: methaDONE HCL 40 MG DISPERSABLE TABLET PO SCH (06:00)
[2023-02-07] MEDS: PRENATAL VITAMINS W/ FOLIC ACID TABLET (FP) PO SCH (06:26)
[2023-02-07] MEDS: NICOTINE 21 MG/24 HOURS TOPICAL PATCH TD PRN (09:53)
[2023-02-07] MEDS: hydrOXYzine PAMOATE 50 MG CAPSULE (FP) PO PRN ×2 (14:02→21:12)
[2023-02-07] MEDS: THIAMINE HCL 100 MG TABLET (FP) PO SCH (21:11)
[2023-02-07] MEDS: MELATONIN 5 MG TABLETS PO SCH (21:12)
[2023-02-07] MEDS: SUVOREXANT 15 MG TABLET PO PRN (21:12)
[2023-02-08] MEDS: PRENATAL VITAMINS W/ FOLIC ACID TABLET (FP) PO SCH (06:01)
[2023-02-08] MEDS: ASPIRIN 81 MG CHEWABLE TABLETS PO SCH (06:01)
[2023-02-08] MEDS: FLUoxetine HCL 20 MG CAPSULE PO SCH (06:01)
[2023-02-08] MEDS: levETIRAcetam 500 MG TABLET (FP) PO SCH ×2 (06:01→21:20)
[2023-02-08] MEDS: METHOCARBAMOL 750 MG TAB PO SCH ×2 (06:02→21:20)
[2023-02-08] MEDS: NICOTINE 14 MG/24 HOURS TOPICAL PATCH TD PRN (08:53)
[2023-02-08] MEDS: hydrOXYzine PAMOATE 50 MG CAPSULE (FP) PO PRN ×2 (14:17→21:21)
[2023-02-08] MEDS ORDERED: levETIRAcetam 500 MG TABLET (FP) PO SCH (18:00)
[2023-02-08] MEDS: MELATONIN 5 MG TABLETS PO SCH (21:19)
[2023-02-08] MEDS: THIAMINE HCL 100 MG TABLET (FP) PO SCH (21:19)
[2023-02-08] MEDS: SUVOREXANT 15 MG TABLET PO PRN (21:20)
[2023-02-09] MEDS: METHOCARBAMOL 750 MG TAB PO SCH ×2 (06:21→21:43)
[2023-02-09] MEDS: levETIRAcetam 500 MG TABLET (FP) PO SCH ×2 (06:21→21:43)
[2023-02-09] MEDS: ASPIRIN 81 MG CHEWABLE TABLETS PO SCH (06:22)
[2023-02-09] MEDS: FLUoxetine HCL 20 MG CAPSULE PO SCH (06:22)
[2023-02-09] MEDS: PRENATAL VITAMINS W/ FOLIC ACID TABLET (FP) PO SCH (06:22)
[2023-02-09] MEDS: hydrOXYzine PAMOATE 50 MG CAPSULE (FP) PO PRN ×3 (06:23→21:44)
[2023-02-09] MEDS: MELATONIN 5 MG TABLETS PO SCH (21:43)
[2023-02-09] MEDS: THIAMINE HCL 100 MG TABLET (FP) PO SCH (21:43)
[2023-02-10] MEDS: levETIRAcetam 500 MG TABLET (FP) PO SCH ×2 (05:57→21:14)
[2023-02-10] MEDS: ASPIRIN 81 MG CHEWABLE TABLETS PO SCH (05:57)
[2023-02-10] MEDS: METHOCARBAMOL 750 MG TAB PO SCH ×2 (05:57→21:14)
[2023-02-10] MEDS: FLUoxetine HCL 20 MG CAPSULE PO SCH (05:57)
[2023-02-10] MEDS: PRENATAL VITAMINS W/ FOLIC ACID TABLET (FP) PO SCH (05:59)
[2023-02-10] MEDS: hydrOXYzine PAMOATE 50 MG CAPSULE (FP) PO PRN ×2 (06:00→21:14)
[2023-02-10] MEDS: NICOTINE 14 MG/24 HOURS TOPICAL PATCH TD PRN (09:06)
[2023-02-10] MEDS: THIAMINE HCL 100 MG TABLET (FP) PO SCH (21:14)
[2023-02-10] MEDS: MELATONIN 5 MG TABLETS PO SCH (21:14)
[2023-02-10] MEDS: SUVOREXANT 15 MG TABLET PO PRN (21:15)
[2023-02-11] MEDS: METHOCARBAMOL 750 MG TAB PO SCH ×2 (06:13→21:17)
[2023-02-11] MEDS: hydrOXYzine PAMOATE 50 MG CAPSULE (FP) PO PRN ×2 (06:13→21:17)
[2023-02-11] MEDS: FLUoxetine HCL 20 MG CAPSULE PO SCH (06:13)
[2023-02-11] MEDS: PRENATAL VITAMINS W/ FOLIC ACID TABLET (FP) PO SCH (06:14)
[2023-02-11] MEDS: levETIRAcetam 500 MG TABLET (FP) PO SCH ×2 (06:14→21:17)
[2023-02-11] MEDS: ASPIRIN 81 MG CHEWABLE TABLETS PO SCH (06:14)
[2023-02-11] MEDS: NICOTINE 14 MG/24 HOURS TOPICAL PATCH TD PRN (12:07)
[2023-02-11] MEDS: SUVOREXANT 15 MG TABLET PO PRN (21:17)
[2023-02-11] MEDS: MELATONIN 5 MG TABLETS PO SCH (21:25)
[2023-02-11] MEDS: THIAMINE HCL 100 MG TABLET (FP) PO SCH (21:25)
[2023-02-12] MEDS: METHOCARBAMOL 750 MG TAB PO SCH ×2 (06:11→21:09)
[2023-02-12] MEDS: levETIRAcetam 500 MG TABLET (FP) PO SCH ×2 (06:11→21:09)
[2023-02-12] MEDS: hydrOXYzine PAMOATE 50 MG CAPSULE (FP) PO PRN ×2 (06:11→21:09)
[2023-02-12] MEDS: FLUoxetine HCL 20 MG CAPSULE PO SCH (06:11)
[2023-02-12] MEDS: ASPIRIN 81 MG CHEWABLE TABLETS PO SCH (06:11)
[2023-02-12] MEDS: PRENATAL VITAMINS W/ FOLIC ACID TABLET (FP) PO SCH (06:21)
[2023-02-12] MEDS: NICOTINE 14 MG/24 HOURS TOPICAL PATCH TD PRN (09:34)
[2023-02-12] MEDS: THIAMINE HCL 100 MG TABLET (FP) PO SCH (21:09)
[2023-02-12] MEDS: SUVOREXANT 15 MG TABLET PO PRN (21:10)
[2023-02-13] MEDS ORDERED: methaDONE HCL 40 MG DISPERSABLE TABLET PO SCH (06:00)
[2023-02-13] MEDS: PRENATAL VITAMINS W/ FOLIC ACID TABLET (FP) PO SCH (06:17)
[2023-02-13] MEDS: ASPIRIN 81 MG CHEWABLE TABLETS PO SCH (06:18)
[2023-02-13] MEDS: levETIRAcetam 500 MG TABLET (FP) PO SCH ×2 (06:18→21:32)
[2023-02-13] MEDS: METHOCARBAMOL 750 MG TAB PO SCH ×2 (06:18→21:32)
[2023-02-13] MEDS: FLUoxetine HCL 20 MG CAPSULE PO SCH (06:18)
[2023-02-13] MEDS: hydrOXYzine PAMOATE 50 MG CAPSULE (FP) PO PRN ×3 (06:20→21:32)
[2023-02-13] MEDS: NICOTINE 14 MG/24 HOURS TOPICAL PATCH TD PRN (09:30)
[2023-02-13] MEDS: THIAMINE HCL 100 MG TABLET (FP) PO SCH (21:32)
[2023-02-14] MEDS: hydrOXYzine PAMOATE 50 MG CAPSULE (FP) PO PRN ×3 (06:12→21:13)
[2023-02-14] MEDS: levETIRAcetam 500 MG TABLET (FP) PO SCH ×2 (06:12→21:12)
[2023-02-14] MEDS: ASPIRIN 81 MG CHEWABLE TABLETS PO SCH (06:12)
[2023-02-14] MEDS: METHOCARBAMOL 750 MG TAB PO SCH ×2 (06:12→21:13)
[2023-02-14] MEDS: PRENATAL VITAMINS W/ FOLIC ACID TABLET (FP) PO SCH (06:12)
[2023-02-14] MEDS: FLUoxetine HCL 20 MG CAPSULE PO SCH (06:14)
[2023-02-14] MEDS: THIAMINE HCL 100 MG TABLET (FP) PO SCH (21:12)
[2023-02-14] MEDS: SUVOREXANT 15 MG TABLET PO PRN (21:13)
[2023-02-15] MEDS: PRENATAL VITAMINS W/ FOLIC ACID TABLET (FP) PO SCH (06:11)
[2023-02-15] MEDS: METHOCARBAMOL 750 MG TAB PO SCH ×2 (06:11→21:35)
[2023-02-15] MEDS: hydrOXYzine PAMOATE 50 MG CAPSULE (FP) PO PRN ×3 (06:11→21:35)
[2023-02-15] MEDS: ASPIRIN 81 MG CHEWABLE TABLETS PO SCH (06:11)
[2023-02-15] MEDS: FLUoxetine HCL 20 MG CAPSULE PO SCH (06:11)
[2023-02-15] MEDS: levETIRAcetam 500 MG TABLET (FP) PO SCH ×2 (06:11→21:35)
[2023-02-15] MEDS: methaDONE HCL 40 MG DISPERSABLE TABLET PO SCH (06:12)
[2023-02-15] MEDS: NICOTINE 7 MG/24 HOURS TOPICAL PATCH TD PRN (09:41)
[2023-02-15] MEDS: THIAMINE HCL 100 MG TABLET (FP) PO SCH (21:35)
[2023-02-15] MEDS ORDERED: SUVOREXANT 10 MG TABLET PO PRN (22:00)
[2023-02-15] MEDS: SUVOREXANT 15 MG TABLET PO PRN (22:10)
[2023-02-16] MEDS: METHOCARBAMOL 750 MG TAB PO SCH ×2 (06:02→21:13)
[2023-02-16] MEDS: methaDONE HCL 40 MG DISPERSABLE TABLET PO SCH (06:02)
[2023-02-16] MEDS: ASPIRIN 81 MG CHEWABLE TABLETS PO SCH (06:02)
[2023-02-16] MEDS: hydrOXYzine PAMOATE 50 MG CAPSULE (FP) PO PRN ×3 (06:02→21:13)
[2023-02-16] MEDS: PRENATAL VITAMINS W/ FOLIC ACID TABLET (FP) PO SCH (06:02)
[2023-02-16] MEDS: levETIRAcetam 500 MG TABLET (FP) PO SCH ×2 (06:02→21:13)
[2023-02-16] MEDS: FLUoxetine HCL 20 MG CAPSULE PO SCH (06:29)
[2023-02-16] MEDS: NICOTINE 7 MG/24 HOURS TOPICAL PATCH TD PRN (09:41)
[2023-02-16] MEDS: SUVOREXANT 15 MG TABLET PO PRN (21:13)
[2023-02-16] MEDS: THIAMINE HCL 100 MG TABLET (FP) PO SCH (21:13)
[2023-02-17] MEDS: methaDONE HCL 40 MG DISPERSABLE TABLET PO SCH (06:10)
[2023-02-17] MEDS: ASPIRIN 81 MG CHEWABLE TABLETS PO SCH (06:10)
[2023-02-17] MEDS: FLUoxetine HCL 20 MG CAPSULE PO SCH (06:11)
[2023-02-17] MEDS: METHOCARBAMOL 750 MG TAB PO SCH ×2 (06:11→21:47)
[2023-02-17] MEDS: levETIRAcetam 500 MG TABLET (FP) PO SCH ×2 (06:11→21:47)
[2023-02-17] MEDS: PRENATAL VITAMINS W/ FOLIC ACID TABLET (FP) PO SCH (06:11)
[2023-02-17] MEDS: hydrOXYzine PAMOATE 50 MG CAPSULE (FP) PO PRN ×3 (06:12→21:47)
[2023-02-17] MEDS: THIAMINE HCL 100 MG TABLET (FP) PO SCH (21:47)
[2023-02-18] MEDS: levETIRAcetam 500 MG TABLET (FP) PO SCH ×2 (06:17→21:42)
[2023-02-18] MEDS: FLUoxetine HCL 20 MG CAPSULE PO SCH (06:17)
[2023-02-18] MEDS: PRENATAL VITAMINS W/ FOLIC ACID TABLET (FP) PO SCH (06:17)
[2023-02-18] MEDS: methaDONE HCL 40 MG DISPERSABLE TABLET PO SCH (06:17)
[2023-02-18] MEDS: METHOCARBAMOL 750 MG TAB PO SCH ×2 (06:17→21:42)
[2023-02-18] MEDS: ASPIRIN 81 MG CHEWABLE TABLETS PO SCH (06:17)
[2023-02-18] MEDS: hydrOXYzine PAMOATE 50 MG CAPSULE (FP) PO PRN ×2 (12:14→21:42)
[2023-02-18] MEDS: SUVOREXANT 15 MG TABLET PO PRN (21:28)
[2023-02-18] MEDS: THIAMINE HCL 100 MG TABLET (FP) PO SCH (21:42)
[2023-02-19] MEDS ORDERED: methaDONE HCL 10 MG TABLET PO SCH (06:00)
[2023-02-19] MEDS: ASPIRIN 81 MG CHEWABLE TABLETS PO SCH (06:01)
[2023-02-19] MEDS: levETIRAcetam 500 MG TABLET (FP) PO SCH ×2 (06:01→21:37)
[2023-02-19] MEDS: hydrOXYzine PAMOATE 50 MG CAPSULE (FP) PO PRN ×3 (06:03→21:37)
[2023-02-19] MEDS: PRENATAL VITAMINS W/ FOLIC ACID TABLET (FP) PO SCH (06:43)
[2023-02-19] MEDS: METHOCARBAMOL 750 MG TAB PO SCH ×2 (06:50→21:37)
[2023-02-19] MEDS: FLUoxetine HCL 20 MG CAPSULE PO SCH (06:50)
[2023-02-19] MEDS: THIAMINE HCL 100 MG TABLET (FP) PO SCH (21:37)
[2023-02-19] MEDS: SUVOREXANT 15 MG TABLET PO PRN (21:38)
[2023-02-19] MEDS: GABAPENTIN 100 MG CAPSULE PO SCH (21:38)
[2023-02-20] MEDS: PRENATAL VITAMINS W/ FOLIC ACID TABLET (FP) PO SCH (06:08)
[2023-02-20] MEDS: METHOCARBAMOL 750 MG TAB PO SCH ×2 (06:08→21:23)
[2023-02-20] MEDS: ASPIRIN 81 MG CHEWABLE TABLETS PO SCH (06:08)
[2023-02-20] MEDS: levETIRAcetam 500 MG TABLET (FP) PO SCH ×2 (06:08→21:23)
[2023-02-20] MEDS: FLUoxetine HCL 20 MG CAPSULE PO SCH (06:08)
[2023-02-20] MEDS: hydrOXYzine PAMOATE 50 MG CAPSULE (FP) PO PRN ×3 (06:08→21:23)
[2023-02-20] MEDS: GABAPENTIN 100 MG CAPSULE PO SCH ×3 (06:08→21:24)
[2023-02-20] MEDS: THIAMINE HCL 100 MG TABLET (FP) PO SCH (21:23)
[2023-02-20] MEDS: SUVOREXANT 15 MG TABLET PO PRN (21:24)
[2023-02-21] MEDS: ASPIRIN 81 MG CHEWABLE TABLETS PO SCH (06:06)
[2023-02-21] MEDS: METHOCARBAMOL 750 MG TAB PO SCH ×2 (06:06→21:16)
[2023-02-21] MEDS: levETIRAcetam 500 MG TABLET (FP) PO SCH ×2 (06:06→21:16)
[2023-02-21] MEDS: hydrOXYzine PAMOATE 50 MG CAPSULE (FP) PO PRN ×3 (06:06→21:16)
[2023-02-21] MEDS: GABAPENTIN 100 MG CAPSULE PO SCH ×3 (06:06→21:16)
[2023-02-21] MEDS: PRENATAL VITAMINS W/ FOLIC ACID TABLET (FP) PO SCH (06:06)
[2023-02-21] MEDS: FLUoxetine HCL 20 MG CAPSULE PO SCH (06:09)
[2023-02-21] MEDS: THIAMINE HCL 100 MG TABLET (FP) PO SCH (21:15)
[2023-02-21] MEDS: IBUPROFEN 600 MG TABLET (FP) PO PRN (21:16)
[2023-02-21] MEDS: SUVOREXANT 10 MG TABLET PO PRN (21:17)
[2023-02-22] MEDS: FLUoxetine HCL 20 MG CAPSULE PO SCH (06:01)
[2023-02-22] MEDS: PRENATAL VITAMINS W/ FOLIC ACID TABLET (FP) PO SCH (06:08)
[2023-02-22] MEDS: METHOCARBAMOL 750 MG TAB PO SCH ×2 (06:08→21:07)
[2023-02-22] MEDS: levETIRAcetam 500 MG TABLET (FP) PO SCH ×2 (06:08→21:07)
[2023-02-22] MEDS: ASPIRIN 81 MG CHEWABLE TABLETS PO SCH (06:08)
[2023-02-22] MEDS: GABAPENTIN 100 MG CAPSULE PO SCH ×3 (06:09→21:07)
[2023-02-22] MEDS: hydrOXYzine PAMOATE 50 MG CAPSULE (FP) PO PRN (06:11)
[2023-02-22] MEDS: hydrOXYzine PAMOATE 25 MG CAPSULE (FP) PO PRN (13:32)
[2023-02-22] MEDS: IBUPROFEN 600 MG TABLET (FP) PO PRN (21:06)
[2023-02-22] MEDS: THIAMINE HCL 100 MG TABLET (FP) PO SCH (21:06)
[2023-02-22] MEDS: SUVOREXANT 10 MG TABLET PO PRN (21:07)
[2023-02-23] MEDS: PRENATAL VITAMINS W/ FOLIC ACID TABLET (FP) PO SCH (06:07)
[2023-02-23] MEDS: GABAPENTIN 100 MG CAPSULE PO SCH ×3 (06:07→21:18)
[2023-02-23] MEDS: ASPIRIN 81 MG CHEWABLE TABLETS PO SCH (06:07)
[2023-02-23] MEDS: levETIRAcetam 500 MG TABLET (FP) PO SCH ×2 (06:08→21:18)
[2023-02-23] MEDS: FLUoxetine HCL 20 MG CAPSULE PO SCH (06:41)
[2023-02-23] MEDS: METHOCARBAMOL 750 MG TAB PO SCH (06:41)
[2023-02-23] MEDS: hydrOXYzine PAMOATE 25 MG CAPSULE (FP) PO PRN ×3 (06:42→21:18)
[2023-02-23] MEDS: FERROUS SO4 325 MG TABLET (FP) PO SCH (10:36)
[2023-02-23] MEDS: THIAMINE HCL 100 MG TABLET (FP) PO SCH (21:18)
[2023-02-23] MEDS: METHOCARBAMOL 500 MG TABLET PO SCH (21:20)
[2023-02-24] MEDS: PRENATAL VITAMINS W/ FOLIC ACID TABLET (FP) PO SCH (06:15)
[2023-02-24] MEDS: FLUoxetine HCL 20 MG CAPSULE PO SCH (06:15)
[2023-02-24] MEDS: METHOCARBAMOL 500 MG TABLET PO SCH ×2 (06:16→21:08)
[2023-02-24] MEDS: ASPIRIN 81 MG CHEWABLE TABLETS PO SCH (06:16)
[2023-02-24] MEDS: hydrOXYzine PAMOATE 25 MG CAPSULE (FP) PO PRN ×2 (06:18→21:09)
[2023-02-24] MEDS: levETIRAcetam 500 MG TABLET (FP) PO SCH ×2 (06:18→21:09)
[2023-02-24] MEDS: GABAPENTIN 100 MG CAPSULE PO SCH ×3 (06:18→21:09)
[2023-02-24] MEDS: FERROUS SO4 325 MG TABLET (FP) PO SCH (09:36)
[2023-02-24] MEDS: THIAMINE HCL 100 MG TABLET (FP) PO SCH (21:08)
[2023-02-24] MEDS: IBUPROFEN 600 MG TABLET (FP) PO PRN (21:08)
[2023-02-24] MEDS: SUVOREXANT 10 MG TABLET PO PRN (21:11)
[2023-02-25] MEDS: levETIRAcetam 500 MG TABLET (FP) PO SCH ×2 (06:05→21:25)
[2023-02-25] MEDS: GABAPENTIN 100 MG CAPSULE PO SCH ×3 (06:05→21:44)
[2023-02-25] MEDS: ASPIRIN 81 MG CHEWABLE TABLETS PO SCH (06:05)
[2023-02-25] MEDS: PRENATAL VITAMINS W/ FOLIC ACID TABLET (FP) PO SCH (06:05)
[2023-02-25] MEDS: METHOCARBAMOL 500 MG TABLET PO SCH ×2 (06:05→21:24)
[2023-02-25] MEDS: FLUoxetine HCL 20 MG CAPSULE PO SCH (06:09)
[2023-02-25] MEDS: hydrOXYzine PAMOATE 25 MG CAPSULE (FP) PO PRN ×3 (06:09→21:25)
[2023-02-25] MEDS: FERROUS SO4 325 MG TABLET (FP) PO SCH (09:32)
[2023-02-25] MEDS: IBUPROFEN 600 MG TABLET (FP) PO PRN (21:24)
[2023-02-25] MEDS: THIAMINE HCL 100 MG TABLET (FP) PO SCH (21:24)
[2023-02-25] MEDS: SUVOREXANT 10 MG TABLET PO PRN (21:25)
[2023-02-26] MEDS: FLUoxetine HCL 20 MG CAPSULE PO SCH (06:09)
[2023-02-26] MEDS: METHOCARBAMOL 500 MG TABLET PO SCH ×2 (06:09→21:10)
[2023-02-26] MEDS: ASPIRIN 81 MG CHEWABLE TABLETS PO SCH (06:09)
[2023-02-26] MEDS: PRENATAL VITAMINS W/ FOLIC ACID TABLET (FP) PO SCH (06:09)
[2023-02-26] MEDS: levETIRAcetam 500 MG TABLET (FP) PO SCH ×2 (06:09→21:11)
[2023-02-26] MEDS: GABAPENTIN 100 MG CAPSULE PO SCH ×3 (06:25→21:10)
[2023-02-26] MEDS: hydrOXYzine PAMOATE 25 MG CAPSULE (FP) PO PRN ×2 (08:37→21:10)
[2023-02-26] MEDS: FERROUS SO4 325 MG TABLET (FP) PO SCH (10:25)
[2023-02-26] MEDS ORDERED: FERROUS SO4 325 MG TABLET (FP) PO PRN (15:40)
[2023-02-26] MEDS: THIAMINE HCL 100 MG TABLET (FP) PO SCH (21:10)
[2023-02-26] MEDS: SUVOREXANT 10 MG TABLET PO PRN (21:38)
[2023-02-27] MEDS: PRENATAL VITAMINS W/ FOLIC ACID TABLET (FP) PO SCH (06:58)
[2023-02-27] MEDS: GABAPENTIN 100 MG CAPSULE PO SCH ×3 (06:58→21:22)
[2023-02-27] MEDS: levETIRAcetam 500 MG TABLET (FP) PO SCH ×2 (06:59→21:21)
[2023-02-27] MEDS: FLUoxetine HCL 20 MG CAPSULE PO SCH (06:59)
[2023-02-27] MEDS: METHOCARBAMOL 500 MG TABLET PO SCH ×2 (06:59→21:21)
[2023-02-27] MEDS: hydrOXYzine PAMOATE 25 MG CAPSULE (FP) PO PRN ×2 (06:59→14:10)
[2023-02-27] MEDS: ASPIRIN 81 MG CHEWABLE TABLETS PO SCH (06:59)
[2023-02-27 07:05] VITALS: TEMP 97.8
[2023-02-27] MEDS: THIAMINE HCL 100 MG TABLET (FP) PO SCH (21:21)
[2023-02-27] MEDS: SUVOREXANT 10 MG TABLET PO PRN (21:23)
[2023-02-28] MEDS: PRENATAL VITAMINS W/ FOLIC ACID TABLET (FP) PO SCH (06:18)
[2023-02-28] MEDS: FLUoxetine HCL 20 MG CAPSULE PO SCH (06:19)
[2023-02-28] MEDS: GABAPENTIN 100 MG CAPSULE PO SCH (06:19)
[2023-02-28] MEDS: METHOCARBAMOL 500 MG TABLET PO SCH (06:19)
[2023-02-28] MEDS: levETIRAcetam 500 MG TABLET (FP) PO SCH (06:19)
[2023-02-28] MEDS: ASPIRIN 81 MG CHEWABLE TABLETS PO SCH (06:21)
[2023-02-28 06:42] VITALS: BP 130/83; PULSE 85; RESP 20
== END 2023-02-28 09:05 | disposition home or self-care (01) | DRG 772 ==
LOC: YASAS 14:07 → Y3E 14:09
PROVIDERS: ADMIT Allergy & Immunology; ATTEND Psychiatry & Neurology Pain Medicine
PROC: HZ42ZZZ Group Counseling for Substance Abuse Treatment, Cognitive-Behavioral (ICD-10-PCS; principal; 2023-02-04)
DX: F10.20 Alcohol dependence, uncomplicated (principal); F11.20 Opioid dependence, uncomplicated; F13.20 Sedative, hypnotic or anxiolytic dependence, uncomplicated; F17.210 Nicotine dependence, cigarettes, uncomplicated; F41.9 Anxiety disorder, unspecified; K21.9 Gastro-esophageal reflux disease without esophagitis; M54.50 Low back pain, unspecified; G89.29 Other chronic pain; R76.11 Nonspecific reaction to tuberculin skin test without active tuberculosis; Z20.1 Contact with and (suspected) exposure to tuberculosis; Z86.718 Personal history of other venous thrombosis and embolism; Z79.82 Long term (current) use of aspirin
CPT/HCPCS: 36415; 86803; 93005; 93010